=== PATIENT | female | born 1935 | race Caucasian/White ===

== ENCOUNTER 2016-06-01 08:54 | Observation (INO) ==
--- NOTE | 2016-06-01 08:56 | Emergency Department Note ---
Disposition Clinical Impression: Syncope, Laceration of scalp, New onset atrial fibrillation, Closed head injury Disposition: Admitted As Inpatient Condition: Good General Adult HPI - General Chief complaint: ED Syncope Stated complaint: Syncope Time Seen by Provider: 06/01/16 08:55 - Related Data Home Medications Medication Instructions Recorded Confirmed Aspirin Enteric Coated [Aspirin EC] 81 mg PO HS 11/18/14 06/01/16 Cyanocobalamin (Vitamin B-12) 1,000 mcg PO 11/18/14 06/01/16 [Vitamin B12] Isosorbide MONOnitrate (24 HR) 30 mg PO HS 11/18/14 06/01/16 [Imdur] Metoprolol XL (24 HR) Succ [Toprol 25 mg PO 11/18/14 06/01/16 XL] Nitroglycerin [Nitrostat] 0.4 mg SL Q5M PRN 11/18/14 06/01/16 Calcitriol [Rocaltrol] 0.25 mcg PO HS 11/21/15 06/01/16 Losartan/HCTZ [Hyzaar 50-12.5 1 each PO DAILY 11/21/15 06/01/16 Tablet] Arsen's Leg Cramps 1 each PO HS 06/01/16 06/01/16 Promethazine [Phenergan] 25 mg PO Q6H PRN 06/01/16 06/01/16 Allergies Allergy/AdvReac Type Severity Reaction Status Date / Time No Known Allergies Allergy Verified 11/21/15 10:59 Past Medical History - Past Medical History Medical history: Reports: coronary artery disease, hypertension, kidney stones, other Surgical history: Reports: herniorrhaphy, hysterectomy, other Psychiatric history: Reports: no psych history [employer] history: Reports: no [employer] history - Social History Smoking Status: Unknown if ever smoked Smokeless Tobacco Status: No Alcohol use: Reports: none Drug use: Reports: none Course Vital Signs Temperature 98.4 F 06/01/16 08:55 Pulse Rate 84 06/01/16 08:55 Respiratory Rate 16 06/01/16 08:55 Blood Pressure 144/71 06/01/16 08:55 O2 Sat by Pulse Oximetry 96 06/01/16 08:55 Temperature 98.3 F 06/02/16 04:59 Pulse Rate 59 06/02/16 04:59 Respiratory Rate 18 06/02/16 04:59 Blood Pressure 100/50 06/02/16 04:59 O2 Sat by Pulse Oximetry 95 06/02/16 04:59 Oxygen Delivery Oxygen Delivery Room Air Medical Decision Making - Lab Data Result diagrams: 06/02/16 06:24 06/01/16 09:16 Lab Results 06/01/16 06/01/16 06/01/16 Range/Units 09:07 09:16 09:16 WBC 6.0 (4.3-11.1) K/mcL RBC 4.39 (3.82-4.97) M/mcL Hgb 13.2 (11.5-15.4) g/dL Hct 40.2 (35.3-44.9) % MCV 91.6 (83.0-100.0) fL MCH 30.1 (28.0-33.3) pg MCHC 32.8 (31.6-35.5) g/dL RDW 12.4 (11.5-14.5) % Plt Count 187 (140-400) K/mcL MPV 10.6 (9.4-12.4) fL Immature Gran % 0.5 (0-4) % Seg Neutrophils % 61.9 % Lymphocytes % 25.9 % Monocytes % 7.5 % Eosinophils % 3.7 % Basophils % 0.5 % Neutrophils # 3.7 (1.6-8.9) K/mcL Lymphocytes # 1.6 (0.6-4.6) K/mcL Monocytes # 0.5 (0.0-1.3) K/mcL Eosinophils # 0.2 (0.0-0.6) K/mcL Basophils # 0.0 (0.0-0.2) K/mcL Immature Plt Fraction 5.0 (1.1-6.1) % PT 10.6 (9.4-12.1) Seconds INR 1.0 APTT 27.1 (26.0-36.0) Seconds Sodium (136-145) mEq/L Potassium (3.5-4.5) mEq/L Chloride (98-109) mEq/L Carbon Dioxide (19-29) mEq/L BUN (7-20) mg/dL Creatinine (0.57-1.11) mg/dL Est GFR ( Amer) (> 60) Est GFR (Non-Af Amer) (> 60) BUN/Creatinine Ratio (6-26) Glucose (70-99) mg/dL POC Glucose 124 H (58-89) Calculated Osmolality (280-300) Calcium (8.6-10.8) mg/dL Phosphorus (2.3-4.7) mg/dL Magnesium (1.6-2.6) mg/dL Troponin I (0-0.03) ng/mL TSH (0.350-4.840) mcIU/mL 06/01/16 06/01/16 Range/Units 09:16 09:16 WBC (4.3-11.1) K/mcL RBC (3.82-4.97) M/mcL Hgb (11.5-15.4) g/dL Hct (35.3-44.9) % MCV (83.0-100.0) fL MCH (28.0-33.3) pg MCHC (31.6-35.5) g/dL RDW (11.5-14.5) % Plt Count (140-400) K/mcL MPV (9.4-12.4) fL Immature Gran % (0-4) % Seg Neutrophils % % Lymphocytes % % Monocytes % % Eosinophils % % Basophils % % Neutrophils # (1.6-8.9) K/mcL Lymphocytes # (0.6-4.6) K/mcL Monocytes # (0.0-1.3) K/mcL Eosinophils # (0.0-0.6) K/mcL Basophils # (0.0-0.2) K/mcL Immature Plt Fraction (1.1-6.1) % PT (9.4-12.1) Seconds INR APTT (26.0-36.0) Seconds Sodium 142 (136-145) mEq/L Potassium 3.8 (3.5-4.5) mEq/L Chloride 111 H (98-109) mEq/L Carbon Dioxide 20 (19-29) mEq/L BUN 26 H (7-20) mg/dL Creatinine 1.16 H (0.57-1.11) mg/dL Est GFR ( Amer) 54 L (> 60) Est GFR (Non-Af Amer) 45 L (> 60) BUN/Creatinine Ratio 22 (6-26) Glucose 128 H (70-99) mg/dL POC Glucose (58-89) Calculated Osmolality 300 (280-300) Calcium 9.1 (8.6-10.8) mg/dL Phosphorus 3.0 (2.3-4.7) mg/dL Magnesium 1.5 L (1.6-2.6) mg/dL Troponin I 0.01 (0-0.03) ng/mL TSH 5.024 H (0.350-4.840) mcIU/mL Attestation Statement - Attestation Attestation: I examined this patient and my medical decision-making was reviewed with the COLLECTION CARD CLERK/PA/Advanced Practice Nurse/Resident Physician. I agree with the documented findings, disposition and treatment plan as described except to the extent set forth below. Face to face time provided Patient presents from home via EMS. She felt warm, lightheaded, dizzy and then fell and passed out. She has a laceration to her posterior occiput. She is lucid and conversational at the time of my exam. Patient seen and evaluated in conjunction with the resident physician Dr. Sterling
[2016-06-01] MEDS ORDERED: Ondansetron 4 MG/2 ML VIAL IV ONE (09:04)
--- NOTE | 2016-06-01 09:06 | Emergency Department Note ---
Disposition Clinical Impression: New onset atrial fibrillation Syncope Qualifiers: Syncope type: unspecified Qualified Code(s): R55 - Syncope and collapse Laceration of scalp Qualifiers: Encounter type: initial encounter Qualified Code(s): S01.01XA - Laceration without foreign body of scalp, initial encounter Closed head injury Qualifiers: Encounter type: initial encounter Qualified Code(s): S09.90XA - Unspecified injury of head, initial encounter Disposition: Admitted As Inpatient Condition: Good Time of Disposition: 10:16 Syncope HPI - General Chief Complaint: ED Syncope Stated Complaint: Syncope Time Seen by Provider: 06/01/16 08:55 Source: patient, EMS Mode of arrival: EMS Limitations: no limitations Nursing Notes Reviewed: Yes Vital Signs Reviewed: Yes - History of Present Illness HPI Narrative: 81-year-old female history of hypertension presents to ED via EMS for syncope. Patient got up this morning and made breakfast with eggs while standing she reports a warm feeling going up through her belly and she passed out. Denies any prodromal symptoms such as lightheadedness, headache, chest pain, shortness of breath. Denies any neck pain at this time. She lives at home with her daughter who found her. Denies any alcohol use today. She reports nausea at this time, no emesis. Denies any recent illness, fever, cough. She takes 81 mg aspirin. Denies any history of cardiac ischemic disease or heart failure. Denies any bloody stool, black tarry stool, hemoptysis. Her primary care physician is Dr. Lazaro. Dr. Flores is her membership counselor who she hasn't seen in several years. She is unsure of her last tetanus is and believes it has been close to 10 years if not more. Pt Subjective Complaint: loss of consciousness - Related Data Home Medications Medication Instructions Recorded Confirmed Aspirin Enteric Coated [Aspirin EC] 81 mg PO HS 11/18/14 06/01/16 Cyanocobalamin (Vitamin B-12) 1,000 mcg PO HS 11/18/14 06/01/16 [Vitamin B12] Isosorbide MONOnitrate (24 HR) 30 mg PO HS 11/18/14 06/01/16 [Imdur] Metoprolol XL (24 HR) Succ [Toprol 25 mg PO HS 11/18/14 06/01/16 XL] Nitroglycerin [Nitrostat] 0.4 mg SL Q5M PRN 11/18/14 06/01/16 Calcitriol [Rocaltrol] 0.25 mcg PO HS 11/21/15 06/01/16 Losartan/HCTZ [Hyzaar 50-12.5 1 each PO DAILY 11/21/15 06/01/16 Tablet] Arsen's Leg Cramps 1 each PO HS 06/01/16 06/01/16 Promethazine [Phenergan] 25 mg PO Q6H PRN 06/01/16 06/01/16 Allergies Allergy/AdvReac Type Severity Reaction Status Date / Time No Known Allergies Allergy Verified 11/21/15 10:59 All systems ED: reviewed and negative except as stated. Constitutional: Denies: fever, chills Eyes: Denies: vision change Cardiovascular: Denies: chest pain, palpitations, dyspnea on exertion Respiratory: Denies: cough, dyspnea, wheezes Gastrointestinal: Reports: nausea. Denies: abdominal pain, vomiting, melena, hematochezia Genitourinary: Denies: urgency, dysuria Musculoskeletal: Denies: back pain, neck pain Integumentary: Denies: rash, abrasion Neurological: Denies: headache, confusion Hematological/Lymphatic: Denies: easy bleeding Past Medical History - Past Medical History Attestation: Yes The following information was validated with the patient. Medical history: Reports: coronary artery disease, hypertension, kidney stones, other Surgical history: Reports: herniorrhaphy, hysterectomy, other Psychiatric history: Reports: no psych history VASCULAR SURGERY PHYSICIAN history: Reports: no VASCULAR SURGERY PHYSICIAN history - Social History Smoking Status: Unknown if ever smoked Smokeless Tobacco Status: No Alcohol use: Reports: none Drug use: Reports: none Physical Exam - General Limitations: no limitations General appearance: alert, in no apparent distress - Expanded Head Exam Head exam physicial: Present: laceration (stellate right parietal/occipital, 4 cm ). Absent: contusion, raccoon eyes, Persaud's sign, CSF rhinorrhea - Eye Eye exam: Present: normal appearance, PERRL, EOMI - ENT ENT exam: normal exam, normal oropharynx, mucous membranes moist, TM's normal bilaterally - Expanded ENT Exam TM/Canal: Hemotympanum: Negative Nose exam: negative: rhinorrhea, sinus tenderness Mouth exam: Present: normal external inspection, tongue normal Teeth exam: Present: normal inspection Throat exam: Present: normal inspection - Neck Neck exam: Present: normal inspection, full ROM, trachea midline. Absent: tenderness - Expanded Neck Exam Neck exam focused ED: Absent: midline tenderness, paraspinal tenderness, anterior neck swelling - Chest Chest inspection: Present: normal inspection, symmetric chest wall rise - Respiratory Respiratory exam: Present: normal lung sounds bilaterally. Absent: respiratory distress, wheezes - Cardiovascular Cardiovascular exam: Present: regular rate, normal rhythm, normal heart sounds. Absent: systolic murmur, diastolic murmur - Abdominal Exam Abdominal exam: Present: soft, Non-Tender, normal bowel sounds. Absent: tenderness, distention, guarding, rebound, rigidity - Extremities Exam Extremities exam: Present: normal inspection, full ROM, normal capillary refill. Absent: tenderness, pedal edema, calf tenderness - Back Exam Back exam: Present: normal inspection, full ROM. Absent: tenderness - Neurological Exam Neurological exam: Present: alert, oriented X3, CN II-XII intact - Expanded Neurological Exam Patient oriented to: Present: person, place, time Speech: Present: fluid speech Cranial nerves: EOM function (II, III, IV, ): Normal, facial sensation (V): Normal, facial palsy (VII): Normal, gag reflex (IX): Normal, spinal accessory function (XI): Normal, tongue deviation (XII): Normal Motor strength - LUE: 5/5 Motor strength - RUE: 5/5 Motor strength - LLE: 5/5 Motor strength - RLE: 5/5 Upper motor neuron exam: andrew neglect: Absent bilaterally Sensory exam upper extremity: light touch: Normal Sensory exam lower extremity: light touch: Normal - Psychiatric Psychiatric exam: Present: normal affect, normal mood - Skin Skin exam: Present: warm, dry, intact, normal color - Expanded Skin Exam Type of lesion: Present: laceration Distribution: head Description: Present: size 1 - 2 cm 2 - 2 cm Course Course Narrative: 81-year-old female presents for syncopal episode. She has a head laceration to the right parietal region. Leading his control at this time. Denies any prodromal symptoms prior to syncope. No history of heart failure. Vital signs are stable. She appears in no acute distress. Neurologic exam is normal without any focal neural deficits. No cervical midline tenderness. Flexion of the cervical spine reproduces nausea and lightheadedness. She vomited once and eugene down to 30-40s. This is likely the cause of her syncope. Heart is regular rate and rhythm. Lungs are clear auscultation bilaterally. Abdomen is soft nontender and nondistended. Will update her tetanus. EKG, basic labs, CT of the head. No cervical neck tenderness. She is cleared by Nexus criteria. EKG performed reveals atrial fibrillation 73 bpm. Patient is unaware of any history of irregular heart rhythm such as atrial fibrillation and this appears to be new onset. Alpine syncope rule, she has an abnormal aberrant EKG. Will be admitted for syncope and new onset atrial fibrillation. - Reevaluation(s) Reevaluation #1: EKG reveals new onset atrial fibrillation 73 bpm she is not anemic. TSH is elevated 5. She has renal insufficiency that appears better than baseline 1.1. Troponins negative. Magnesium is low at 1.5. Low replete with 2 g magnesium. Chest x-ray appears unremarkable. CT of the head does not reveal any intracranial abnormality. Patient admitted for syncope, closed head injury , new onset atrial fibrillation. Scalp laceration repaired with megan. Tetanus was updated. Time: 10:24 Reevaluation #2: Repeat EKG reveals sinus rhythm with first-degree AV block OK interval 353. No ST elevation or depressions. No T-wave versions. Q waves are consistent in the inferior leads. Time: 10:39 - Consultations Consultation #1: Spoke with on-call hospitalist rachell Betancur to admit for syncope, closed head injury, new onset atrial fibrillation. No further orders at this time Time: 10:39 Vital Signs Temperature 98.4 F 06/01/16 08:55 Pulse Rate 84 06/01/16 08:55 Respiratory Rate 16 06/01/16 08:55 Blood Pressure 144/71 06/01/16 08:55 O2 Sat by Pulse Oximetry 96 06/01/16 08:55 Temperature 98.4 F 06/01/16 08:55 Pulse Rate 73 06/01/16 10:21 Respiratory Rate 16 06/01/16 10:21 Blood Pressure 123/49 06/01/16 10:21 O2 Sat by Pulse Oximetry 95 06/01/16 10:21 Oxygen Delivery Oxygen Delivery Room Air Procedures - Laceration Laceration 1 Site: scalp Side (If applicable): right Size (cm): 7 (3cm x 2 cm x 2cm) Description: stellate Local Anesthetic: lidocaine 1%, with epi Amount of Anesthesia Used (mL): 5 Pre-repair: wound explored, irrigated extensively, deep structures intact Skin layer closed with: megan Number of sutures/megan: 9 (megan) Technique: simple, interrupted Syncope - Medical Records Medical records reviewed: Yes I reviewed the patient's medical records. - Lab Data Lab results reviewed: Yes I reviewed the patient's lab results. Result diagrams: 06/01/16 09:16 06/01/16 09:16 Lab Results 06/01/16 06/01/16 06/01/16 Range/Units 09:07 09:16 09:16 WBC 6.0 (4.3-11.1) K/mcL RBC 4.39 (3.82-4.97) M/mcL Hgb 13.2 (11.5-15.4) g/dL Hct 40.2 (35.3-44.9) % MCV 91.6 (83.0-100.0) fL MCH 30.1 (28.0-33.3) pg MCHC 32.8 (31.6-35.5) g/dL RDW 12.4 (11.5-14.5) % Plt Count 187 (140-400) K/mcL MPV 10.6 (9.4-12.4) fL Immature Gran % 0.5 (0-4) % Seg Neutrophils % 61.9 % Lymphocytes % 25.9 % Monocytes % 7.5 % Eosinophils % 3.7 % Basophils % 0.5 % Neutrophils # 3.7 (1.6-8.9) K/mcL Lymphocytes # 1.6 (0.6-4.6) K/mcL Monocytes # 0.5 (0.0-1.3) K/mcL Eosinophils # 0.2 (0.0-0.6) K/mcL Basophils # 0.0 (0.0-0.2) K/mcL Immature Plt Fraction 5.0 (1.1-6.1) % PT 10.6 (9.4-12.1) Seconds INR 1.0 APTT 27.1 (26.0-36.0) Seconds Sodium (136-145) mEq/L Potassium (3.5-4.5) mEq/L Chloride (98-109) mEq/L Carbon Dioxide (19-29) mEq/L BUN (7-20) mg/dL Creatinine (0.57-1.11) mg/dL Est GFR ( Amer) (> 60) Est GFR (Non-Af Amer) (> 60) BUN/Creatinine Ratio (6-26) Glucose (70-99) mg/dL POC Glucose 124 H (58-89) Calculated Osmolality (280-300) Calcium (8.6-10.8) mg/dL Phosphorus (2.3-4.7) mg/dL Magnesium (1.6-2.6) mg/dL Troponin I (0-0.03) ng/mL TSH (0.350-4.840) mcIU/mL 06/01/16 06/01/16 Range/Units 09:16 09:16 WBC (4.3-11.1) K/mcL RBC (3.82-4.97) M/mcL Hgb (11.5-15.4) g/dL Hct (35.3-44.9) % MCV (83.0-100.0) fL MCH (28.0-33.3) pg MCHC (31.6-35.5) g/dL RDW (11.5-14.5) % Plt Count (140-400) K/mcL MPV (9.4-12.4) fL Immature Gran % (0-4) % Seg Neutrophils % % Lymphocytes % % Monocytes % % Eosinophils % % Basophils % % Neutrophils # (1.6-8.9) K/mcL Lymphocytes # (0.6-4.6) K/mcL Monocytes # (0.0-1.3) K/mcL Eosinophils # (0.0-0.6) K/mcL Basophils # (0.0-0.2) K/mcL Immature Plt Fraction (1.1-6.1) % PT (9.4-12.1) Seconds INR APTT (26.0-36.0) Seconds Sodium 142 (136-145) mEq/L Potassium 3.8 (3.5-4.5) mEq/L Chloride 111 H (98-109) mEq/L Carbon Dioxide 20 (19-29) mEq/L BUN 26 H (7-20) mg/dL Creatinine 1.16 H (0.57-1.11) mg/dL Est GFR ( Amer) 54 L (> 60) Est GFR (Non-Af Amer) 45 L (> 60) BUN/Creatinine Ratio 22 (6-26) Glucose 128 H (70-99) mg/dL POC Glucose (58-89) Calculated Osmolality 300 (280-300) Calcium 9.1 (8.6-10.8) mg/dL Phosphorus 3.0 (2.3-4.7) mg/dL Magnesium 1.5 L (1.6-2.6) mg/dL Troponin I 0.01 (0-0.03) ng/mL TSH 5.024 H (0.350-4.840) mcIU/mL - Radiology Data Radiology results reviewed: Yes I reviewed the patient's radiology results. Chest X-Ray 06/01/16 09:01 IMPRESSION: No acute cardiopulmonary process. D/ / 06/01/2016 09:38:01 Kathy Walsh MD / angelica Interpreting Provider: Kathy Walsh MD Head CT 06/01/16 09:02 IMPRESSION: Mild cerebral atrophy. Mild chronic small vessel ischemic changes. 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 No acute brain parenchymal abnormality. D/ / Kathy Walsh MD / Kathy Wlash MD Interpreting Provider: Kathy Walsh MD - EKG Data EKG attestation: Yes I reviewed and interpreted this EKG. EKG results narrative: EKG performed 903 new onset atrial fibrillation 73 bpm, good R-R wave progression, no ST elevation or depression, old Q waves in inferior lead. Compared to old EKG performed 11/21/2015 shows sinus rhythm with first-degree AV block 62 bpm with possible inferior CA with old Q waves consistent with today's EKG. Will check a repeat EKG. No acute ischemic changes.
[2016-06-01] MEDS ORDERED: Tdap (Boostrix) Vaccine 0.5 ML SYRINGE IM ONE (09:11)
[2016-06-01] MEDS ORDERED: Lidocaine/EPI 1:100k 1% 20 ML VIAL INFILT ONE (09:12)
[2016-06-01 09:23] LABS: Basophils % 0.5 %; Eosinophils # 0.2 K/mcL (0.0-0.6); Eosinophils % 3.7 %; Hematocrit 40.2 % (35.3-44.9); Hemoglobin 13.2 g/dL (11.5-15.4); Immature Granulocytes % 0.5 % (0-4); Lymphocytes # 1.6 K/mcL (0.6-4.6); Lymphocytes % 25.9 %; Mean Corpuscular HGB Conc 32.8 g/dL (31.6-35.5); Mean Corpuscular Hemoglobin 30.1 pg (28.0-33.3); Mean Corpuscular Volume 91.6 fL (83.0-100.0); Mean Platelet Volume 10.6 fL (9.4-12.4); Monocytes # 0.5 K/mcL (0.0-1.3); Monocytes % 7.5 %; Neutrophils # 3.7 K/mcL (1.6-8.9); Platelet Count 187 K/mcL (140-400); Red Blood Count 4.39 M/mcL (3.82-4.97); Red Cell Distribution Width 12.4 % (11.5-14.5); Segmented Neutrophils % 61.9 %
[2016-06-01 09:28] LABS: Prothrombin Time 10.6 Seconds (9.4-12.1)
[2016-06-01 09:30] LABS: Activated Partial Thrombo Time 27.1 Seconds (26.0-36.0)
[2016-06-01 09:34] LABS: Calcium 9.1 mg/dL (8.6-10.8); Potassium 3.8 mEq/L (3.5-4.5)
[2016-06-01 09:50] LABS: Magnesium 1.5 mg/dL (1.6-2.6)
[2016-06-01 10:12] LABS: Thyroid Stimulating Hormone 5.024 mcIU/mL (0.350-4.840)
[2016-06-01] MEDS ORDERED: Naloxone 0.4 MG/ML INJ IVP PRN (11:25)
[2016-06-01] MEDS ORDERED: Nitroglycerin 0.4 MG TAB.SUBL SL PRN (11:28)
--- NOTE | 2016-06-01 11:41 | Internal Med History&Physical ---
<Corazon Velasquez M - Last Filed: 06/01/16 11:36> Date of Encounter: 06/01/16 Time of Encounter: 11:36 Assessment and Plan (1) Syncope Current visit: Yes Status: Acute Patient reports this morning she was standing at her stove when a warm feeling came over her, she was dizzy and lightheaded and the next thing she knew she was on the floor. She denies any other recent episodes of dizziness, lightheadedness or fainting. On exam, she becomes lightheaded and nauseous when her position is changed from lying at 45 degree angle to sitting straight up. CT of the Head was negative for acute abnormality. EKG showed Afib, but repeat EKG showed sinus rhythm. Troponin was negative at 0.01. Continuous court monitor serial troponins echocardiogram orthostatic vital signs carotid dopplers Qualifiers: Syncope type: unspecified Qualified Code(s): R55 - Syncope and collapse (2) New onset atrial fibrillation Current visit: Yes Status: Acute Initial EKG showed afib with HR 73. Patient denies any history of afib or arrhythmia. Repeat EKG showed sinus rhythm with first degree AV block. Patient already on metoprolol. Continuous court monitor. Consider anticoagulation options once workup complete. (3) Coronary artery disease Current visit: Yes Status: Acute Cardiac cath 2010 showed EF 60%; L main normal, 40-50% mid LAD, 50% RCA. Continue home doses of metoprolol, imdur, aspirin, Qualifiers: Coronary Disease-Associated Artery/Lesion type: [place] artery [place] vs. transplanted heart: [place] heart Associated angina: without angina Qualified Code(s): I25.10 - Atherosclerotic heart disease of [place] coronary artery without angina pectoris (4) Hypothyroid Current visit: Yes Status: Acute Patient reports she used to take synthroid, but has not for a while because it was no longer needed. TSH elevated at 5.024. Will check T4 and consider initiating levothyroxine again at a low dose. Qualifiers: Hypothyroidism type: unspecified Qualified Code(s): E03.9 - Hypothyroidism , unspecified (5) Laceration of scalp Current visit: Yes Status: Acute Patient hit the back of her head when she fainted and had a laceration. Laceration was cleaned and megan applied by ED. Dressing clean and dry on exam. Qualifiers: Encounter type: initial encounter Qualified Code(s): S01.01XA - Laceration without foreign body of scalp, initial encounter (6) DVT prophylaxis Current visit: Yes Status: Acute Up to chair BID anti-embolic stockings Lovenox 40mg SQ daily Internal Medicine - H&P: HPI Chief complaint: syncope Admitted From: Emergency Dept Plans for Post Hospital Care: Home History of present illness: Ms. Coates is a 81 year old female with hypertension, coronary artery disease, chronic kidney disease, GERD who presented to the emergency department this morning after an episode of syncope. Patient reports she was at the stove cooking eggs when she felt "warm feeling overcome her accompanied by lightheadedness and dizziness in the next thing she knew, she was on the floor. She had fainted and hit her head. She denies any palpitations, shortness of breath, headache prior to event, recent fever, chills, sweats, nausea or vomiting, diarrhea. She denies any weakness, numbness or tingling. Patient reports that when she sits up she does feel dizzy and nauseous. She hit the back of her head during her fall and reports that it was hurting until the ER numbed it for her megan. Evaluation in the emergency department included a CT of her head which showed no acute intracranial abnormality. Chest x-ray showed no acute cardiopulmonary disease. Her initial EKG showed A. fib with heart rate of 73 repeat EKG EKG showed sinus rhythm with first-degree AV block. Troponin was negative at 0.01. TSH was elevated. Magnesium was low at 1.5. Creatinine of 1.16 was consistent with her baseline chronic kidney disease. On exam, patient is alert and oriented, in no acute distress. Lungs are clear bilaterally to auscultation, heart has regular rate and rhythm. Patient becomes visibly uncomfortable and reports nausea and dizziness when she sits up. Past Med Surg Social Fam HX - Past Medical History Medical history: coronary artery disease, GERD, hypertension, kidney stones, renal disease, other Psychiatric history: no psych history - Past Surgical History Surgical History: herniorrhaphy, hysterectomy, other - Social History Smoking Status: Never smoker Smokeless Tobacco Status: No Alcohol use: none Drug use: none - Family History Mother Living Status: Age at : 96 Father Living Status: Age at : 79 Cause of : lung cancer Internal Medicine - H&P: Meds Aspirin Enteric Coated [Aspirin EC] 81 mg PO HS 11/18/14 [History] Cyanocobalamin (Vitamin B-12) [Vitamin B12] 1,000 mcg PO HS 11/18/14 [History] Isosorbide MONOnitrate (24 HR) [Imdur] 30 mg PO HS 11/18/14 [History] Metoprolol XL (24 HR) Succ [Toprol XL] 25 mg PO HS 11/18/14 [History] Nitroglycerin [Nitrostat] 0.4 mg SL Q5M PRN 11/18/14 [History] Calcitriol [Rocaltrol] 0.25 mcg PO HS 11/21/15 [History] Losartan/HCTZ [Hyzaar 50-12.5 Tablet] 1 each PO DAILY 11/21/15 [History] Arsen's Leg Cramps 1 each PO HS 06/01/16 [History] Promethazine [Phenergan] 25 mg PO Q6H PRN 06/01/16 [History] Allergies No Known Allergies Allergy (Verified 11/21/15 10:59) All Systems PM: A 10-system review of systems was performed and is negative for pertinent findings except as documented above in the HPI. - Constitutional Constitutional: no chills, no fever(s), no night sweats - EENT Eyes: no change in vision, no discharge, no pain, no photophobia Ears: no ear discharge, no ear pain, no tinnitus Nose, mouth and throat: no dysphagia, no nasal discharge, no neck pain, no sore throat - Cardiovascular Cardiovascular ROS IM: lightheadedness, syncope, no chest pain, no diaphoresis, no dyspnea, no palpitations - Respiratory Respiratory: no cough, no dyspnea, no wheezing, no excessive phlegm production - Gastrointestinal Gastrointestinal: nausea (with sitting up.), no abdominal pain, no diarrhea, no hematemesis, no hematochezia, no melena, no vomiting - Genitourinary Genitourinary: no change in urinary stream, no dysuria, no flank pain, no hematuria - Musculoskeletal Musculoskeletal ROS IM: no numbness, no tingling - Integumentary Integumentary IM: no rash, no unusual bruising - Neurological Neurological ROS: dizziness, no confusion, no convulsions, no focal weakness, no numbness, no tingling, no tremor(s) - Hematologic/Lymphatic Hematologic/Lymphatic: no easy bruising - Constitutional Vitals: Temp Pulse Resp BP Pulse Ox 98.4 F 74 16 114/59 96 06/01/16 08:55 06/01/16 11:03 06/01/16 11:11 06/01/16 11:11 06/01/16 11:03 General appearance: Present: A&O X 3, pleasant, no acute distress - Head Head exam: Present: normocephalic Additional comments: Patient's head wrapped in gauze after ED physician stapled the laceration on the occiput. - Eye Eye exam: Present: PERRL, conjuntiva pink, sclera anicteric Pupils: Present: PERRL - Neck Neck exam general surgery: Present: supple, trachea midline. Absent: lymphadenopathy - Respiratory Respiratory exam: Present: CTAB. Absent: accessory muscle use, rales, rhonchi, wheezes - Cardiovascular Cardiovascular exam: Present: RRR, +S1, +S2. Absent: diastolic murmur, gallop, rubs, systolic murmur - GI/Abdominal GI/Abdominal exam: Present: normal bowel sounds, soft, no peritoneal signs. Absent: distended, tenderness - Extremities Exam Extremities exam: Present: warm, radial pulses palpable and symetrical. Absent : calf tenderness, cyanotic, pedal edema - Neurological Exam Neurological exam: Present: CN II-XII intact, oriented X3, no focal deficits. Absent: facial droop, speech deficit - Skin Skin exam: Present: dry, intact Internal Med - H&P Results - Labs CBC & Chem 7: 06/01/16 09:16 06/01/16 09:16 Labs: All Lab Results (24 Hours) 06/01/16 06/01/16 06/01/16 Range/Units 09:07 09:16 09:16 WBC 6.0 (4.3-11.1) K/mcL RBC 4.39 (3.82-4.97) M/mcL Hgb 13.2 (11.5-15.4) g/dL Hct 40.2 (35.3-44.9) % MCV 91.6 (83.0-100.0) fL MCH 30.1 (28.0-33.3) pg MCHC 32.8 (31.6-35.5) g/dL RDW 12.4 (11.5-14.5) % Plt Count 187 (140-400) K/mcL MPV 10.6 (9.4-12.4) fL Immature Gran % 0.5 (0-4) % Seg Neutrophils % 61.9 % Lymphocytes % 25.9 % Monocytes % 7.5 % Eosinophils % 3.7 % Basophils % 0.5 % Neutrophils # 3.7 (1.6-8.9) K/mcL Lymphocytes # 1.6 (0.6-4.6) K/mcL Monocytes # 0.5 (0.0-1.3) K/mcL Eosinophils # 0.2 (0.0-0.6) K/mcL Basophils # 0.0 (0.0-0.2) K/mcL Immature Plt Fraction 5.0 (1.1-6.1) % PT 10.6 (9.4-12.1) Seconds INR 1.0 APTT 27.1 (26.0-36.0) Seconds Sodium (136-145) mEq/L Potassium (3.5-4.5) mEq/L Chloride (98-109) mEq/L Carbon Dioxide (19-29) mEq/L BUN (7-20) mg/dL Creatinine (0.57-1.11) mg/dL Est GFR ( Amer) (> 60) Est GFR (Non-Af Amer) (> 60) BUN/Creatinine Ratio (6-26) Glucose (70-99) mg/dL POC Glucose 124 H (58-89) Calculated Osmolality (280-300) Calcium (8.6-10.8) mg/dL Phosphorus (2.3-4.7) mg/dL Magnesium (1.6-2.6) mg/dL Troponin I (0-0.03) ng/mL TSH (0.350-4.840) mcIU/mL 06/01/16 06/01/16 Range/Units 09:16 09:16 WBC (4.3-11.1) K/mcL RBC (3.82-4.97) M/mcL Hgb (11.5-15.4) g/dL Hct (35.3-44.9) % MCV (83.0-100.0) fL MCH (28.0-33.3) pg MCHC (31.6-35.5) g/dL RDW (11.5-14.5) % Plt Count (140-400) K/mcL MPV (9.4-12.4) fL Immature Gran % (0-4) % Seg Neutrophils % % Lymphocytes % % Monocytes % % Eosinophils % % Basophils % % Neutrophils # (1.6-8.9) K/mcL Lymphocytes # (0.6-4.6) K/mcL Monocytes # (0.0-1.3) K/mcL Eosinophils # (0.0-0.6) K/mcL Basophils # (0.0-0.2) K/mcL Immature Plt Fraction (1.1-6.1) % PT (9.4-12.1) Seconds INR APTT (26.0-36.0) Seconds Sodium 142 (136-145) mEq/L Potassium 3.8 (3.5-4.5) mEq/L Chloride 111 H (98-109) mEq/L Carbon Dioxide 20 (19-29) mEq/L BUN 26 H (7-20) mg/dL Creatinine 1.16 H (0.57-1.11) mg/dL Est GFR ( Amer) 54 L (> 60) Est GFR (Non-Af Amer) 45 L (> 60) BUN/Creatinine Ratio 22 (6-26) Glucose 128 H (70-99) mg/dL POC Glucose (58-89) Calculated Osmolality 300 (280-300) Calcium 9.1 (8.6-10.8) mg/dL Phosphorus 3.0 (2.3-4.7) mg/dL Magnesium 1.5 L (1.6-2.6) mg/dL Troponin I 0.01 (0-0.03) ng/mL TSH 5.024 H (0.350-4.840) mcIU/mL - Diagnostic Studies Chest x-ray Additional comments: Chest X-Ray 06/01/16 09:01 IMPRESSION: No acute cardiopulmonary process. D/ / 06/01/2016 09:38:01 Kathy Walsh MD / angelica Interpreting Provider: Kathy Walsh MD CT scan - head Additional comments: Head CT 06/01/16 09:02 IMPRESSION: Mild cerebral atrophy. Mild chronic small vessel ischemic changes. 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 No acute brain parenchymal abnormality. D/ / 06/01/2016 10:26:47 Kathy Walsh MD / angelica Interpreting Provider: Kathy Walsh MD <Emanuel Alexander T - Last Filed: 06/01/16 12:29> Date of Encounter: 06/01/16 Internal Medicine - H&P: HPI History of present illness: Ms. Coates is a 81 year old female All Systems PM: A 10-system review of systems was performed and is negative for pertinent findings except as documented above in the HPI. - Constitutional Vitals: Temp Pulse Resp BP Pulse Ox 97.9 F 85 18 115/65 97 06/01/16 11:25 06/01/16 11:25 06/01/16 11:25 06/01/16 11:25 06/01/16 11:25 Internal Med - H&P Results - Labs CBC & Chem 7: 06/01/16 09:16 06/01/16 09:16 - Attending Attestation I have independently interviewed and examined this patient. I have reviewed the EMR extensively and discussed plan of care the resident/nurse practitioner. 81 Y/O F with PMH of GERD, Nephrolithiasis s/p ureter stent, HTN, CKD, CAD, HTN She presented with syncope preceded by warmth, dizziness and lightheadedness, she had been standing and cooking prior to onset. At time of review, she reported feeling sick/nauseous whenever she sat upright, unable to check orthostatics at that time. She sustained a closed head injury with posterior scalp laceration that has been sutured by ER. She denies preceding chest pain or SOB, no urinary symptoms Physical exam VSS, no neurologic deficits, HS S1, S2, irregular, chest is clear to auscultation bilaterally, abdomen is not tender, no pedal edema. Work un in ED revealed CBC and Chem at baseline, TSH slightly elevated at 5.3, Magnesium low 1.5, Initial EKG showed Afib, repeat EKG was sinus with 1st degree AV block, trop negative. Assessment/Plan: Syncope, r/o cardiac cause, Head CT no acute processes, obtain ECHO, Carotid Doppler, orthostats, fall precautions, Afib, unknown to patient, but one EKG in 2015 reported as Afib, rate is controlled, CHADS score is 2 for age and HTN, discussed anticoagulation with patient, continue ASA for now, cycle troponins and continue to monitor on telemetry, replace Mag and follow chem, agree with checking Free T4, chronic medical conditions are stable Rest of details as in [employer] documentation.
[2016-06-01] MEDS: *HR* HYDROcodone/Acet 5/325 mg TABLET PO PRN (16:24)
[2016-06-01] MEDS: Acetaminophen 325 MG TABLET PO PRN (21:42)
[2016-06-01] MEDS: Aspirin Enteric Coated 81 MG Tablet PO SCH (21:42)
[2016-06-01] MEDS: Isosorbide MONOnitrate (24 HR) 30 MG TAB.ER.24H PO SCH (21:43)
[2016-06-01] MEDS: Metoprolol XL (24 HR) Succ 25 MG TAB.ER.24H PO SCH (21:43)
[2016-06-01] MEDS: Cyanocobalamin (B-12) 1,000 MCG TABLET PO SCH (21:43)
[2016-06-01] MEDS ORDERED: Ondansetron 4 MG/2 ML VIAL IVP PRN (23:41)
[2016-06-02] MEDS: *HR* Enoxaparin 40 MG/0.4 ML SYRINGE SQ SCH (06:15)
[2016-06-02 06:48] LABS: Basophils % 0.3 %; Eosinophils # 0.1 K/mcL (0.0-0.6); Eosinophils % 2.4 %; Hematocrit 35.2 % (35.3-44.9); Hemoglobin 11.7 g/dL (11.5-15.4); Immature Granulocytes % 0.8 % (0-4); Immature Platelets 5.1 % (1.1-6.1); Lymphocytes # 1.1 K/mcL (0.6-4.6); Lymphocytes % 18.8 %; Mean Corpuscular HGB Conc 33.2 g/dL (31.6-35.5); Mean Corpuscular Volume 93.1 fL (83.0-100.0); Mean Platelet Volume 11.4 fL (9.4-12.4); Monocytes # 0.6 K/mcL (0.0-1.3); Monocytes % 9.8 %; Platelet Count 178 K/mcL (140-400); Red Blood Count 3.78 M/mcL (3.82-4.97); Red Cell Distribution Width 12.6 % (11.5-14.5); Segmented Neutrophils % 67.9 %
[2016-06-02 07:03] LABS: Calcium 8.8 mg/dL (8.6-10.8); Magnesium 2.1 mg/dL (1.6-2.6); Potassium 4.1 mEq/L (3.5-4.5)
[2016-06-02] MEDS: Losartan/HCTZ 50-12.5 TABLET PO SCH (09:02)
--- NOTE | 2016-06-02 09:07 | Internal Med Progress Note ---
Date of Encounter: 06/03/16 Time of Encounter: 09:04 - Assessment and plan (1) Syncope Current Visit: Yes Status: Acute Assessment and plan: Unwitnessed possible syncope: Persistent dizziness in spite of appropriate hydration. Blood pressure and other vital signs within acceptable range. CT scan of the brain/x-ray chest: Within normal limits as age-appropriate. Plan: -Awaiting results for echocardiogram/ultrasound carotid. -We will continue present management. -Close monitoring. -Fall precaution Qualifiers: Syncope type: unspecified Qualified Code(s): R55 - Syncope and collapse (2) New onset atrial fibrillation Current Visit: Yes Status: Acute Assessment and plan: EKG from yesterday suggestive of her atrial fibrillation. Previous EKG reviewed and they were in sinus rhythm. [id number] 4 HAS-BLED 4 Discuss with family at length regarding anticoagulation. (3) Closed head injury Current Visit: Yes Status: Acute Assessment and plan: We will continue to monitor closely. No obvious bleeding noted. Close monitoring. Fall precautions. Qualifiers: Encounter type: subsequent encounter Qualified Code(s): S09.90XD - Unspecified injury of head, subsequent encounter (4) Coronary artery disease Current Visit: Yes Status: Acute Assessment and plan: Stable coronary artery disease. No chest pain. Qualifiers: Coronary Disease-Associated Artery/Lesion type: [place] artery [place] vs. transplanted heart: [place] heart Associated angina: without angina Qualified Code(s): I25.10 - Atherosclerotic heart disease of [place] coronary artery without angina pectoris (5) Hypothyroid Current Visit: Yes Status: Acute Assessment and plan: Replacement medication Qualifiers: Hypothyroidism type: unspecified Qualified Code(s): E03.9 - Hypothyroidism , unspecified (6) DVT prophylaxis Current Visit: Yes Status: Acute Assessment and plan: Lovenox Medical decision making: This patient has a moderate to severe risk of worsening in spite of being on appropriate medication - Subjective Interval history: Seen and examined. Chart reviewed. Patient is comfortably lying in bed. She still complains he complains of occasional dizziness. patient denies chest pain, nausea, shortness of breath, abdominal pain or diarrhea - Constitutional Vitals: Temp Pulse Resp BP Pulse Ox 98.3 F 59 18 100/50 96 06/02/16 04:59 06/02/16 04:59 06/02/16 04:59 06/02/16 04:59 06/02/16 07:52 General appearance: Present: A&O X 3, pleasant, no acute distress - Head Head exam: Present: atraumatic, normocephalic - Eye Eye exam: Present: PERRL, conjuntiva pink, sclera anicteric Pupils: Present: PERRL - Neck Neck exam general surgery: Present: supple, trachea midline. Absent: lymphadenopathy - Respiratory Respiratory exam: Present: CTAB. Absent: accessory muscle use, rales, rhonchi, wheezes - Cardiovascular Cardiovascular exam: Present: RRR, +S1, +S2. Absent: diastolic murmur, gallop, rubs, systolic murmur - GI/Abdominal GI/Abdominal exam: Present: normal bowel sounds, soft, no peritoneal signs. Absent: distended, tenderness - Extremities Exam Extremities exam: Present: warm, radial pulses palpable and symetrical. Absent : calf tenderness, cyanotic, pedal edema - Neurological Exam Neurological exam: Present: CN II-XII intact, oriented X3, no focal deficits. Absent: pronater drift, facial droop, speech deficit - Skin Skin exam: Present: dry, intact Internal Medicine: Result - Labs CBC & Chem 7: 06/03/16 04:27 06/03/16 04:27 Labs: Short CBC 06/02/16 Range/Units 06:24 WBC 5.9 (4.3-11.1) K/mcL Hgb 11.7 D (11.5-15.4) g/dL Hct 35.2 L (35.3-44.9) % Plt Count 178 (140-400) K/mcL Neutrophils # 4.0 (1.6-8.9) K/mcL BMP 06/02/16 06:24 Sodium 141 Potassium 4.1 Chloride 110 H Carbon Dioxide 22 BUN 28 H Creatinine 1.20 H Glucose 94 Calcium 8.8 Cardiac Enzymes 06/01/16 06/01/16 Range/Units 16:13 21:47 Troponin I 0.01 0.02 (0-0.03) ng/mL - ABG Interpretation ABG results: PT/INR, D-dimer PT 10.6 Seconds (9.4-12.1) 06/01/16 09:16 Consult Discharge Plan - Plan Referrals: Balaji Vega DO [Partnered Physician] - Chloé Lazaro MD [Primary Care Provider] -
[2016-06-02] MEDS: Metoprolol XL (24 HR) Succ 25 MG TAB.ER.24H PO SCH (21:12)
[2016-06-02] MEDS: Cyanocobalamin (B-12) 1,000 MCG TABLET PO SCH (21:12)
[2016-06-02] MEDS: Aspirin Enteric Coated 81 MG Tablet PO SCH (21:12)
[2016-06-02] MEDS: Isosorbide MONOnitrate (24 HR) 30 MG TAB.ER.24H PO SCH (21:12)
[2016-06-02] MEDS: *HR* HYDROcodone/Acet 5/325 mg TABLET PO PRN (21:19)
[2016-06-03 04:52] LABS: Basophils % 0.6 %; Eosinophils # 0.3 K/mcL (0.0-0.6); Eosinophils % 5.1 %; Hematocrit 35.7 % (35.3-44.9); Hemoglobin 11.7 g/dL (11.5-15.4); Lymphocytes # 1.9 K/mcL (0.6-4.6); Lymphocytes % 35.5 %; Mean Corpuscular HGB Conc 32.8 g/dL (31.6-35.5); Mean Corpuscular Hemoglobin 30.2 pg (28.0-33.3); Mean Corpuscular Volume 92.2 fL (83.0-100.0); Monocytes # 0.6 K/mcL (0.0-1.3); Monocytes % 10.9 %; Neutrophils # 2.6 K/mcL (1.6-8.9); Platelet Count 167 K/mcL (140-400); Red Blood Count 3.87 M/mcL (3.82-4.97); Red Cell Distribution Width 12.3 % (11.5-14.5); Segmented Neutrophils % 47.9 %
[2016-06-03 05:14] LABS: Albumin 2.8 g/dL (3.5-5.0); Bilirubin,Total 0.9 mg/dL (0.2-1.2); Calcium 8.9 mg/dL (8.6-10.8); Globulin 2.9 g/dL (2.4-3.5); Potassium 4.1 mEq/L (3.5-4.5); Total Protein 5.7 g/dL (6.0-8.3)
[2016-06-03] MEDS: *HR* Enoxaparin 40 MG/0.4 ML SYRINGE SQ SCH (05:47)
--- NOTE | 2016-06-03 09:07 | Electrocardiograph Report ---
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
--- NOTE | 2016-06-03 09:08 | Electrocardiograph Report ---
[address] [place] [address] Test Date: 2016-06-01 Pat Name: Niesha Coates Department: 102 Room: 2NE32 Gender: F Retail Account Representative: : 1935 Requested By: Reinaldo Sterling Order Number: [id number] Reading MD: Jose Rojas MD Measurements Intervals [place] Rate: 70 P: 66 CT: 353 QRS: -12 QRSD: 83 T: 10 QT: 382 QTc: 403 Interpretive Statements SINUS RHYTHM WITH FIRST DEGREE AV BLOCK MINIMAL VOLTAGE CRITERIA FOR LVH INFERIOR MYOCARDIAL INFARCTION, PROBABLY OLD Electronically Signed On 06-03-2016 9:06:43 EDT by Jose Rojas MD
--- NOTE | 2016-06-03 10:48 | ECHO - Doppler Report ---
Echocardiogram Name: Niesha Coates Date of Study: 06/02/2016 Date: 1935 Ht: 68.0 in Medical Record#: [id number] Age: 81 Wt: 198.0 lb Gender: Female BSA: 2.04 Order #: [id number] Location: [facility] Room #: 2NE32 Reading Physician: Balaji Vega DO, IGNACIO, CHANELL LEMUS [place] Operator: Chantelle Lao RDCS Ordering Physician: Corazon Velasquez CNP Primary Physician: Chloé Lazaro MD Indications: Syncope Impressions: LVEF 60-65%. Normal LV chamber size and function. Mild concentric left ventricular hypertrophy. Mild left ventricular diastolic dysfunction. Atypical septal motion of unclear etiology. Normal right ventricular structure and function. Mild pulmonary hypertension. Estimated RVSP is 42 mmHg. No significant valvular dysfunction. Left Ventricular Wall Motion: Rest Echo Findings All wall segments showed normal motion. Findings: Study Quality * Technically adequate exam. ECG Findings * Normal sinus rhythm. Left Ventricle * LVEF 60-65%. * Normal LV chamber size and function. * Mild concentric left ventricular hypertrophy. * Mild left ventricular diastolic dysfunction. * Atypical septal motion of unclear etiology. Right Ventricle * Normal right ventricular structure and function. Left Atrium * Moderately dilated left atrium. Right Atrium * Mildly dilated right atrium. Interatrial Septum * Interatrial septum not well evaluated. Aortic Valve * Moderately calcified aortic valve leaflets. Unable to determine the number of leaflets. * No aortic regurgitation. * No aortic stenosis by Doppler. Mitral Valve * Moderate posterior mitral annular calcification. * Trace mitral regurgitation. * No mitral stenosis. Tricuspid Valve * Normal tricuspid valve structure and function. * Trace tricuspid regurgitation. * Mild pulmonary hypertension. * Estimated RVSP is 42 mmHg. * Estimated RA pressure is 5 mmHg. Pulmonic Valve * Normal pulmonic valve structure and function. * No pulmonic regurgitation. Aorta * Normally sized aortic root. Pericardium * The pericardium appears normal. IVC * Normal IVC dimensions and inspiratory collapse. Pulmonary Artery * Normal visualized portions of the main pulmonary artery. History Hypertension 03/17/2014 a Previous Echo was performed. Measurements: BP: 100/ 50 2D Normal Values RVIDd: 3.31 cm <2.7 cm IVSd: 1.20 cm 0.6 - 1.0 cm LVIDd: 4.87 cm 3.7 - 5.6 cm LVPWd: 1.20 cm 0.6 - 1.1 cm LVIDs: 2.71 cm 1.5 - 3.6 cm AO: 2.70 cm < 4.0 cm LA: 4.20 cm 2.0 - 4.0cm %FS: 44.40 cm >25 % LA volume: 86 Mitral Valve Peak E:.87 m/sec Peak A:.95 m/sec E/A Ratio:0.9 Peak E' Lat Branden:8.27 cm/s Peak E' Med Branden:6.31 cm/s E/E' Lat Ratio:10.5 E/E' Med Ratio:13.8 Tricuspid Valve TV Regurg Peak Grad: 37.00mmHg TV Regurg Peak Branden: 2.96m/sec Updated by Balaji Vega DO, FACFadumo, CHANELL LEMUS on 06/03/2016 10:42:31 AM electronically signed on 06/03/2016 10:44:20 AM with status of Final Wall Motion [place]: 1=Normal, 2=Hypokinesis, 3=Akinesis, 4=Dyskinesis, 5=Aneurysmal, 6=Hyperkinetic, X=Not Visualized (Blank)=Missing
[2016-06-03] MEDS: Losartan/HCTZ 50-12.5 TABLET PO SCH (11:40)
[2016-06-03] MEDS: Acetaminophen 325 MG TABLET PO PRN (12:24)
--- NOTE | 2016-06-03 12:27 | Discharge Summary ---
Date of Encounter: 06/03/16 Time of Encounter: 12:24 - Discharge Diagnosis (1) Syncope Priority: Primary Status: Acute Qualifiers: Syncope type: unspecified Qualified Code(s): R55 - Syncope and collapse (2) New onset atrial fibrillation Priority: Primary Status: Acute (3) Coronary artery disease Priority: Secondary Status: Acute Qualifiers: Coronary Disease-Associated Artery/Lesion type: [place] artery [place] vs. transplanted heart: [place] heart Associated angina: without angina Qualified Code(s): I25.10 - Atherosclerotic heart disease of [place] coronary artery without angina pectoris (4) Closed head injury Priority: Primary Status: Acute Qualifiers: Encounter type: subsequent encounter Qualified Code(s): S09.90XD - Unspecified injury of head, subsequent encounter (5) Hypothyroid Priority: Secondary Status: Acute Qualifiers: Hypothyroidism type: unspecified Qualified Code(s): E03.9 - Hypothyroidism , unspecified (6) DVT prophylaxis Priority: Secondary Status: Acute - Discharge Medications Home Medications: Aspirin Enteric Coated [Aspirin EC] 81 mg PO HS 11/18/14 [History] Cyanocobalamin (Vitamin B-12) [Vitamin B12] 1,000 mcg PO HS 11/18/14 [History] Isosorbide MONOnitrate (24 HR) [Imdur] 30 mg PO HS 11/18/14 [History] Metoprolol XL (24 HR) Succ [Toprol XL] 25 mg PO HS 11/18/14 [History] Nitroglycerin [Nitrostat] 0.4 mg SL Q5M PRN 11/18/14 [History] Calcitriol [Rocaltrol] 0.25 mcg PO HS 11/21/15 [History] Losartan/HCTZ [Hyzaar 50-12.5 Tablet] 1 each PO DAILY 11/21/15 [History] Arsen's Leg Cramps 1 each PO HS 06/01/16 [History] Promethazine [Phenergan] 25 mg PO Q6H PRN 06/01/16 [History] Allergies/Adverse Reactions: Allergies No Known Allergies Allergy (Verified 11/21/15 10:59) Procedures/tests Complete & Pending: Procedures Performed prior 72 hours Category Date Time Status EV carotid duplex imaging BI Routine Y 06/02/16 10:01 Completed EV echocardiogram Routine Y 06/02/16 10:01 Completed Date of admission: 06/01/16 10:51 Primary care physician: Chloé Campuzano Discharging clinician: Joey Molina - Patient Status Disposition: Home, Self-Care Condition: Good Functional capacity at discharge: uses cane/walker Overall status at discharge: patient is progressing back to baseline - Discharge Instructions Follow Up With: Chloé Lazaro MD [Primary Care Provider] - Balaji Vega DO [Partnered Physician] - - Diet and Activity Activity: increase activity as tolerated Diet: low fat, low cholesterol, low salt diet Interval History: Ms. Coates is a 81 year old female with hypertension, coronary artery disease, chronic kidney disease, GERD who presented to the emergency department this morning after an episode of syncope. Patient reports she was at the stove cooking eggs when she felt "warm feeling overcome her accompanied by lightheadedness and dizziness in the next thing she knew, she was on the floor. She had fainted and hit her head. She denies any palpitations, shortness of breath, headache prior to event, recent fever, chills, sweats, nausea or vomiting, diarrhea. She denies any weakness, numbness or tingling. Patient reports that when she sits up she does feel dizzy and nauseous. She hit the back of her head during her fall and reports that it was hurting until the ER numbed it for her megan. Evaluation in the emergency department included a CT of her head which showed no acute intracranial abnormality. Chest x-ray showed no acute cardiopulmonary disease. Her initial EKG showed A. fib with heart rate of 73 repeat EKG EKG showed sinus rhythm with first-degree AV block. Hospital course: Patient was hospitalized. Telemetry monitoring did not show any further atrial fibrillation. To me it looks like a multifocal atrial tachycardia. Patient and her family has a counselor regarding atrial fibrillation. Discussed with the patient at length regarding possible anticoagulation. Her [id number] 4 and HAS-BLED 4. Explained at length with the family regarding the meaning of the same. Patient and family decided at this point not to go with anticoagulation and they will be discussing this issue with their primary care provider. Patient and her family verbalized the risk of not starting anticoagulation which includes stroke, NV, respiratory failure, sudden . Patient was evaluated for syncopal episode. CT scan of the head was within normal limits. Echocardiogram showed ejection fraction of 60-65%. No regional wall motion abnormality. Ultrasound carotid was suggestive of no significant stenotic lesions. Plan: Patient can go home. Follow-up with the PCP in 1-2 weeks. [place] needs to be removed by PCP. Follow-up with cardiology in 1-2 weeks. QUESTIONS answered. At the time of discharge patient does not have questions concerns, update, recommendations regarding her hospital stay - Time Spent with Patient Total time spent providing and/or coordinating discharge services: - Constitutional Vitals: Temp Pulse Resp BP Pulse Ox 97.8 F 62 18 123/63 97 06/03/16 07:52 06/03/16 07:52 06/03/16 07:52 06/03/16 07:52 06/03/16 07:52 General appearance: Present: A&O X 3, pleasant, no acute distress - Head Head exam: Present: atraumatic, normocephalic - Eye Eye exam: Present: PERRL, conjuntiva pink, sclera anicteric Pupils: Present: PERRL - Neck Neck exam general surgery: Present: supple, trachea midline. Absent: lymphadenopathy - Respiratory Respiratory exam: Present: CTAB. Absent: accessory muscle use, rales, rhonchi, wheezes - Cardiovascular Cardiovascular exam: Present: RRR, +S1, +S2. Absent: diastolic murmur, gallop, rubs, systolic murmur - GI/Abdominal GI/Abdominal exam: Present: normal bowel sounds, soft, no peritoneal signs. Absent: distended, tenderness - Extremities Exam Extremities exam: Present: warm, radial pulses palpable and symetrical. Absent : calf tenderness, cyanotic, pedal edema - Neurological Exam Neurological exam: Present: CN II-XII intact, oriented X3, no focal deficits. Absent: pronater drift, facial droop, speech deficit - Skin Skin exam: Present: dry, intact
--- NOTE | 2016-06-03 12:40 | Carotid Imaging Report ---
Carotid Duplex Patient Name:Niesha Coates Order Number:[id number] Procedure Date:06/02/2016 Date:4Age:81 yrs Gender:Female Location:[facility] Room #: [id number] Parts Chaser:Chantelle Lao, RDLANDON Referring MD:Corazon Velasquez, MINI BAR ATTENDANT inside sales director:Chloé Lazaro MD Reading MD:Norberto Granados MD , FACS Primary Indications:Syncope and collapse Risk Factors Yes/No Hypertension Yes Impressions: Findings: Bilateral carotid system are essentially normal. Recommendations: Preliminary given to Dr Molina at bedside. Findings Carotid Duplex: Chaves scale imaging combined with Doppler flow analysis suggests normal findings bilaterally. Right: The right proximal common carotid artery has a PSV of 119 cm/s and a EDV of 24 cm/s. The right mid common carotid artery has a PSV of 99 cm/s and a EDV of 24 cm/s. The right distal common carotid artery has a PSV of 105 cm/s and a EDV of 27 cm/s. The right bifurcation has a PSV of 115 cm/s and a EDV of 31 cm/s. The right proximal internal carotid artery has a PSV of 97 cm/s and a EDV of 29 cm/s. The right mid internal carotid artery has a PSV of 99 cm/s and a EDV of 31 cm/s. The right distal internal carotid artery has a PSV of 93 cm/s and a EDV of 23 cm/s. The right eca has a PSV of 117 cm/s and a EDV of 15 cm/s. The right vertebral artery has a PSV of 69 cm/s and a EDV of 20 cm/s. There is antegrade spectral Doppler flow patterns. Left: The left proximal common carotid artery has a PSV of 109 cm/s and a EDV of 25 cm/s. The left mid common carotid artery has a PSV of 114 cm/s and a EDV of 27 cm/s. The left distal common carotid artery has a PSV of 129 cm/s and a EDV of 28 cm/s. The left bifurcation has a PSV of 65 cm/s and a EDV of 18 cm/s. The left proximal internal carotid artery has a PSV of 136 cm/s and a EDV of 28 cm/s. The left mid internal carotid artery has a PSV of 115 cm/s and a EDV of 29 cm/s. The left distal internal carotid artery has a PSV of 125 cm/s and a EDV of 34 cm/s. The left eca has a PSV of 157 cm/s and a EDV of 14 cm/s. The left vertebral artery has a PSV of 54 cm/s and a EDV of 17 cm/s. There is antegrade spectral Doppler flow patterns. Prior Study: No prior study available for comparison. Carotid Results Right PSV EDV Assessment Proximal CCA 119 24 Mid CCA 99 24 Distal CCA 105 27 Bifurcation 115 31 Proximal ICA 97 29 Mid ICA 99 31 Distal ICA 93 23 ECA 117 15 Vertebral Artery 69 20 Antegrade Flow Left PSV EDV Assessment Proximal CCA 109 25 Mid CCA 114 27 Distal CCA 129 28 Bifurcation 65 18 Proximal ICA 136 28 Mid ICA 115 29 Distal ICA 125 34 ECA 157 14 Vertebral Artery 54 17 Antegrade Flow Ratio's Right ICA/CCA Ratio: 1.00 ICA/CCA Values: 99/99 Left ICA/CCA Ratio: 1.01 ICA/CCA Values: 115/114 Updated by Norberto Granados MD, FACS on 06/03/2016 12:33:56 PM Norberto Granados MD electronically signed on 06/03/2016 12:34:26 PM with status of Final
[2016-06-03] MEDS: Cyanocobalamin (B-12) 1,000 MCG TABLET PO SCH (21:32)
[2016-06-03] MEDS: Aspirin Enteric Coated 81 MG Tablet PO SCH (21:32)
[2016-06-03] MEDS: Metoprolol XL (24 HR) Succ 25 MG TAB.ER.24H PO SCH (21:32)
[2016-06-03] MEDS: Isosorbide MONOnitrate (24 HR) 30 MG TAB.ER.24H PO SCH (21:32)
[2016-06-04 06:10] LABS: Albumin 2.9 g/dL (3.5-5.0); Albumin/Globulin Ratio 0.9 (1.1-2.2); Bilirubin,Total 1.1 mg/dL (0.2-1.2); Calcium 9.4 mg/dL (8.6-10.8); Globulin 3.1 g/dL (2.4-3.5)
[2016-06-04 06:15] LABS: Basophils % 0.3 %; Eosinophils # 0.3 K/mcL (0.0-0.6); Eosinophils % 5.1 %; Hematocrit 35.6 % (35.3-44.9); Hemoglobin 12.1 g/dL (11.5-15.4); Immature Granulocytes % 0.2 % (0-4); Lymphocytes # 1.3 K/mcL (0.6-4.6); Lymphocytes % 23.2 %; Mean Corpuscular Hemoglobin 31.1 pg (28.0-33.3); Mean Corpuscular Volume 91.5 fL (83.0-100.0); Mean Platelet Volume 11.6 fL (9.4-12.4); Monocytes # 0.6 K/mcL (0.0-1.3); Monocytes % 10.6 %; Neutrophils # 3.5 K/mcL (1.6-8.9); Platelet Count 173 K/mcL (140-400); Red Blood Count 3.89 M/mcL (3.82-4.97); Red Cell Distribution Width 12.3 % (11.5-14.5); Segmented Neutrophils % 60.6 %
[2016-06-04] MEDS: Losartan/HCTZ 50-12.5 TABLET PO SCH (08:12)
[2016-06-04] MEDS: *HR* Enoxaparin 40 MG/0.4 ML SYRINGE SQ SCH (08:12)
--- NOTE | 2016-06-04 08:40 | Internal Med Progress Note ---
Date of Encounter: 06/04/16 Time of Encounter: 08:38 - Assessment and plan (1) Syncope Current Visit: Yes Status: Acute Assessment and plan: Discharge held last night due to lightheadedness. She is feeling better today and ready to go home. D/C order as written yesterday. Qualifiers: Syncope type: vasovagal syncope Qualified Code(s): R55 - Syncope and collapse (2) Laceration of scalp Current Visit: Yes Status: Acute Qualifiers: Encounter type: subsequent encounter Qualified Code(s): S01.01XD - Laceration without foreign body of scalp, subsequent encounter (3) Closed head injury Current Visit: Yes Status: Acute Assessment and plan: No acute findings at this time. Qualifiers: Encounter type: subsequent encounter Qualified Code(s): S09.90XD - Unspecified injury of head, subsequent encounter (4) New onset atrial fibrillation Current Visit: Yes Status: Acute Assessment and plan: Pt and family has had prior discussion regarding anticoagulation. She will follow with PCP for further discussion. (5) Hypothyroid Current Visit: Yes Status: Acute Assessment and plan: Replacement medication Qualifiers: Hypothyroidism type: unspecified Qualified Code(s): E03.9 - Hypothyroidism , unspecified - Subjective Interval history: Ms. Coates has been in observation due to syncopal episode. She remained in the hospital last evening due to feeling lightheaded when standing up. Ms. Coates is feeling at baseline at this time. She ate a good breakfast. She feels ready to go home today. - Constitutional Vitals: Temp Pulse Resp BP Pulse Ox 98.1 F 59 16 145/72 97 06/04/16 05:44 06/04/16 05:44 06/04/16 05:44 06/04/16 05:44 06/04/16 05:44 General appearance: Present: A&O X 3, pleasant, answers questions appropriately - Head Head exam: Present: normocephalic Additional comments: Epes posterior scalp. - Eye Eye exam: Present: EOMI, conjuntiva pink - ENT ENT exam: Present: mucous membranes moist - Respiratory Respiratory exam: Present: CTAB. Absent: rhonchi, wheezes - Cardiovascular Cardiovascular exam: Present: RRR. Absent: systolic murmur, tachycardia - GI/Abdominal GI/Abdominal exam: Present: soft. Absent: tenderness - Extremities Exam Extremities exam: Present: warm. Absent: pedal edema - Neurological Exam Neurological exam: Present: alert, oriented X3. Absent: no focal deficits - Psychiatric Psychiatric exam: Present: normal affect, normal mood - Skin Skin exam: Present: warm. Absent: rash Internal Medicine: Result - Labs CBC & Chem 7: 06/04/16 05:36 06/04/16 05:36 Labs: Short CBC 06/04/16 Range/Units 05:36 WBC 5.7 (4.3-11.1) K/mcL Hgb 12.1 (11.5-15.4) g/dL Hct 35.6 (35.3-44.9) % Plt Count 173 (140-400) K/mcL Neutrophils # 3.5 (1.6-8.9) K/mcL BMP 06/04/16 05:36 Sodium 138 Potassium 4.0 Chloride 107 Carbon Dioxide 22 BUN 27 H Creatinine 1.17 H Glucose 88 Calcium 9.4 Liver Function 06/04/16 Range/Units 05:36 Total Bilirubin 1.1 (0.2-1.2) mg/dL AST 17 (5-34) Units/L ALT 12 (0-55) Units/L Alkaline Phosphatase 75 (38-126) Units/L Albumin 2.9 L (3.5-5.0) g/dL - ABG Interpretation ABG results: PT/INR, D-dimer PT 10.6 Seconds (9.4-12.1) 06/01/16 09:16 Consult Discharge Plan - Plan Instructions: Atrial Fibrillation (DC), Syncope (DC), Hypothyroidism (DC) Additional Instructions: As tolerated. Please use walker or cane when ambulating if you feel dizzy. If you feel dizzy please sit down and rest, do not get back up if dizzy until this goes away. If it doesn't go away call 911. Referrals: Leela Patel CNP [Advanced Practice Nurse] - 06/12/16 1:30 pm (Followup appt after hospitalization and Also, ask them if megan can be taken out from laceration to back of head. Primary Care Physician to take these out.) Balaji Vega DO [Partnered Physician] - (appointment requested. cardiology will call with appointment. ) Chloé Lazaro MD [Primary Care Provider] -
[2016-06-04 10:42] VITALS: BP 145/72
== END 2016-06-04 10:00 | disposition home or self-care (01) ==
LOC: 2NENU 08:54 → EMEROO 08:54 → SUATTDRO 10:51 → 2NENU 11:43
PROVIDERS: ADMIT Nurse Practitioner Family; ATTEND Internal Medicine

== ENCOUNTER 2017-05-11 10:56 | Observation (INO) ==
[2017-05-11] MEDS ORDERED: Ondansetron 4 MG/2 ML VIAL IVP ONE (11:05)
[2017-05-11] MEDS ORDERED: 0.9 % Sodium Chloride 1,000 ML IVC ONE (11:05)
--- NOTE | 2017-05-11 11:24 | Emergency Department Note ---
START Narrative - START START: I examined this patient and my medical decision-making was reviewed with the emergency medicine resident. I agree with the documented findings, disposition and treatment plan as described except to the extent set forth below. Patient seen with emergency medicine resident Dr. Opal Lentz, Please see a copy of his note for details of the H&P, ED evaluation, management and disposition. I have independently evaluated the patient and confirmed appropriate portions of the history and physical exam. Briefly: 82-year-old female history of atrial fibrillation presents with the lightheadedness near syncope also left flank pain. About a week ago she had 3 ureteral stents placed by Dr. Richards at [facility]. Patient denies vomiting or nausea at this time. Almost pain-free at this time. She says she feels like this when her atrial fibrillation acts up. EKG shows sinus rhythm with no acute ischemic changes. Patient having screening labs IV fluids urinalysis pending. Disposition pending.
--- NOTE | 2017-05-11 11:51 | Emergency Department Note ---
Disposition Clinical Impression: Dehydration UTI (urinary tract infection) Qualifiers: Urinary tract infection type: acute cystitis Hematuria presence: with hematuria Qualified Code(s): N30.01 - Acute cystitis with hematuria Disposition: Admitted As Inpatient Condition: Good Forms: ED Satisfaction Letter Time of Disposition: 14:00 General Adult HPI - General Chief complaint: ED Weakness Stated complaint: generalized weakness Time Seen by Provider: 05/11/17 11:03 Source: patient Limitations: no limitations Nursing Notes Reviewed: Yes Vital Signs Reviewed: Yes - History of Present Illness HPI Narrative: Several day history of generalized weakness. States it got worse this morning. Concerned that she is possibly in atrial fibrillation this morning as she got very diaphoretic. Denies any chest pain. States that she has not ever felt it go irregular however she has history of it. Had some burning on urination yesterday. The urologist called her in Different antibiotics. Pain Scale: 0 - Related Data Home Medications Medication Instructions Recorded Confirmed Metoprolol XL (24 HR) Succ [Toprol 25 mg PO HS 11/18/14 04/26/17 XL] Nitroglycerin [Nitrostat] 0.4 mg SL Q5M PRN 11/18/14 04/26/17 Calcitriol [Rocaltrol] 0.25 mcg PO HS 11/21/15 04/26/17 Losartan/HCTZ [Hyzaar 50-12.5 1 tab PO DAILY 11/21/15 04/26/17 Tablet] Arsen's Leg Cramps 1 each PO HS 06/01/16 04/26/17 Apixaban [Eliquis] 5 mg PO BID 04/26/17 04/26/17 Ergocalciferol (VITAMIN D2) 50,000 unit PO QWEEK 04/26/17 04/26/17 [Vitamin D2] Isosorbide MONOnitrate (24 HR) 30 mg PO DAILY 04/26/17 04/26/17 [Imdur] Previous Rx's Medication Instructions Recorded Amoxicillin 500 mg PO Q8H 12 Days #36 tablet 04/27/17 Fluconazole [Diflucan] 100 mg PO DAILY 12 Days #12 tablet 04/27/17 Allergies Allergy/AdvReac Type Severity Reaction Status Date / Time No Known Allergies Allergy Verified 05/11/17 11:04 All systems ED: reviewed and negative except as stated. Constitutional: Denies: fever, chills Cardiovascular: Denies: chest pain, palpitations, syncope Respiratory: Denies: cough, dyspnea Gastrointestinal: Reports: abdominal pain (Suprapubic yesterday. Burning sensation). Denies: nausea, vomiting, diarrhea Genitourinary: Reports: dysuria, other (Dark-colored urine). Denies: urgency, frequency Musculoskeletal: Denies: back pain, neck pain Integumentary: Denies: rash, abrasion Neurological: Reports: weakness. Denies: headache Endocrine: Reports: fatigue Past Medical History - Past Medical History Attestation: Yes The following information was validated with the patient. Source: patient Medical history: Reports: coronary artery disease, hypertension, kidney stones, other Surgical history: Reports: herniorrhaphy, hysterectomy, other Psychiatric history: Reports: no psych history PLASTER FOREMAN history: Reports: no PLASTER FOREMAN history - Social History Smoking Status: Never smoker Smokeless Tobacco Status: No Alcohol use: Reports: none Drug use: Reports: none Physical Exam - General Limitations: no limitations General appearance: alert, in no apparent distress - Head Head exam: atraumatic, normocephalic, normal inspection - Eye Eye exam: Present: normal appearance, PERRL, EOMI - ENT ENT exam: normal exam, normal oropharynx, mucous membranes moist - Neck Neck exam: Present: normal inspection, full ROM, trachea midline - Chest Chest inspection: Present: normal inspection, symmetric chest wall rise. Absent : tenderness - Respiratory Respiratory exam: Present: normal lung sounds bilaterally. Absent: respiratory distress - Cardiovascular Cardiovascular exam: Present: regular rate, normal rhythm, normal heart sounds - Abdominal Exam Abdominal exam: Present: soft, Non-Tender. Absent: tenderness, distention, guarding, rebound, rigidity - Extremities Exam Extremities exam: Present: normal inspection, full ROM. Absent: tenderness, pedal edema - Back Exam Back exam: Present: normal inspection, full ROM. Absent: tenderness - Neurological Exam Neurological exam: Present: alert, oriented X3 - Psychiatric Psychiatric exam: Present: normal affect, normal mood - Skin Skin exam: Present: warm, dry, intact, normal color. Absent: rash, cyanosis Course Course Narrative: Female patient presenting to emergency department complaining of generalized weakness. She states this started this morning. States she feels like this whenever her heart goes into atrial fibrillation. This happen previously. Normal sinus rhythm at this time. She states that this morning she broke out into cold sweat. She states she is not able to feel that her heart is out of rhythm. She denies palpitations. She denies chest pain currently. She recently had ureteral stents placed by Dr. Richards. She states that she does have some burning on urination. They switched her antibiotics last night to TMP -SMX. She reports she is no longer having the burning there is no pain suprapubically when I palpate. Soft and nontender. Her heart tones are normal lung sounds are clear. Cardiac workup was negative. She does have an elevated creatinine which is normal for patient. I spoke with Dr. Richards who recommends that the patient is admitted to place patient on Rocephin and an antifungal. The patient appears clinically dehydrated. We did give her some fluid while she is here. He is also reporting that she has generalized weakness. The family states the patient is unable to take care of herself at home. With her generalized weakness probability of being in A. fib this morning and UTI we will admit patient to the hospital on antibiotics. She is agreeable to this. - Consultations Consultation #1: I spoke with Dr. Richards. He recommends that we start the patient on Rocephin and an antifungal as she grew yeast on her previous urine culture and admission to medicine. Time: 13:33 Vital Signs Temperature 97.9 F 05/11/17 10:59 Pulse Rate 80 05/11/17 10:59 Respiratory Rate 18 05/11/17 10:59 Blood Pressure 162/73 05/11/17 10:59 O2 Sat by Pulse Oximetry 96 05/11/17 10:59 Temperature 97.9 F 05/11/17 10:59 Pulse Rate 80 05/11/17 10:59 Respiratory Rate 18 05/11/17 10:59 Blood Pressure 162/73 05/11/17 10:59 O2 Sat by Pulse Oximetry 96 05/11/17 10:59 Oxygen Delivery Oxygen Delivery Room Air Medical Decision Making - Medical Records Medical records reviewed: Yes I reviewed the patient's medical records. - Lab Data Lab results reviewed: Yes I reviewed the patient's lab results. Result diagrams: 05/11/17 11:32 05/11/17 11:32 Lab Results 05/11/17 05/11/17 05/11/17 Range/Units 11:07 11:19 11:32 WBC 5.8 (4.3-11.1) K/mcL RBC 4.18 (3.82-4.97) M/mcL Hgb 12.5 (11.5-15.4) g/dL Hct 38.6 (35.3-44.9) % MCV 92.3 (83.0-100.0) fL MCH 29.9 (28.0-33.3) pg MCHC 32.4 (31.6-35.5) g/dL RDW 12.8 (11.5-14.5) % Plt Count 194 (140-400) K/mcL MPV 11.2 (9.4-12.4) fL Immature Gran % 0.2 (0-4) % Seg Neutrophils % 72.0 % Lymphocytes % 15.6 % Monocytes % 9.0 % Eosinophils % 2.9 % Basophils % 0.3 % Neutrophils # 4.2 (1.6-8.9) K/mcL Lymphocytes # 0.9 (0.6-4.6) K/mcL Monocytes # 0.5 (0.0-1.3) K/mcL Eosinophils # 0.2 (0.0-0.6) K/mcL Basophils # 0.0 (0.0-0.2) K/mcL Sodium (136-145) mEq/L Potassium (3.5-5.1) mEq/L Chloride (98-107) mEq/L Carbon Dioxide (23-29) mEq/L BUN (8-23) mg/dL Creatinine (0.60-1.20) mg/dL Est GFR ( Amer) (> 60) Est GFR (Non-Af Amer) (> 60) BUN/Creatinine Ratio (6-26) Glucose (70-105) mg/dL POC Glucose 87 (58-89) Calculated Osmolality (280-300) Calcium (8.6-10.3) mg/dL Total Bilirubin (0.3-1.0) mg/dL AST (13-39) Units/L ALT (7-52) Units/L Alkaline Phosphatase (34-104) Units/L Troponin I (< 0.04) ng/mL Serum Total Protein (6.4-8.9) g/dL Albumin (3.5-5.7) g/dL Globulin (2.4-3.5) g/dL Albumin/Globulin Ratio (1.1-2.2) Ur Specimen Adequacy See below A Urine Color Brown (Yellow) Urine Clarity Cloudy A (Clear) Urine pH 5.5 (5.0-8.0) pH Units Ur Specific [place] 1.017 (1.010-1.025) Urine Protein 100 H (Neg-Trace) mg/dL Urine Glucose (UA) Normal (Normal) mg/dL Urine Ketones Negative (Negative) mg/dL Urine Blood Large H (Negative) Urine Nitrite Negative (Negative) Urine Bilirubin Negative (Negative) Urine Urobilinogen Normal (Normal) mg/dL Ur Leukocyte Esterase Moderate H (Negative) Ur Culture Indicated? YES A (NO) 05/11/17 Range/Units 11:32 WBC (4.3-11.1) K/mcL RBC (3.82-4.97) M/mcL Hgb (11.5-15.4) g/dL Hct (35.3-44.9) % MCV (83.0-100.0) fL MCH (28.0-33.3) pg MCHC (31.6-35.5) g/dL RDW (11.5-14.5) % Plt Count (140-400) K/mcL MPV (9.4-12.4) fL Immature Gran % (0-4) % Seg Neutrophils % % Lymphocytes % % Monocytes % % Eosinophils % % Basophils % % Neutrophils # (1.6-8.9) K/mcL Lymphocytes # (0.6-4.6) K/mcL Monocytes # (0.0-1.3) K/mcL Eosinophils # (0.0-0.6) K/mcL Basophils # (0.0-0.2) K/mcL Sodium 137 (136-145) mEq/L Potassium 4.0 (3.5-5.1) mEq/L Chloride 110 H (98-107) mEq/L Carbon Dioxide 19 L (23-29) mEq/L BUN 40 H (8-23) mg/dL Creatinine 1.88 H (0.60-1.20) mg/dL Est GFR ( Amer) 31 L (> 60) Est GFR (Non-Af Amer) 26 L (> 60) BUN/Creatinine Ratio 21 (6-26) Glucose 99 (70-105) mg/dL POC Glucose (58-89) Calculated Osmolality 294 (280-300) Calcium 8.6 (8.6-10.3) mg/dL Total Bilirubin 0.4 (0.3-1.0) mg/dL AST 15 (13-39) Units/L ALT 10 (7-52) Units/L Alkaline Phosphatase 93 (34-104) Units/L Troponin I < 0.03 (< 0.04) ng/mL Serum Total Protein 6.0 L (6.4-8.9) g/dL Albumin 3.3 L (3.5-5.7) g/dL Globulin 2.7 (2.4-3.5) g/dL Albumin/Globulin Ratio 1.2 (1.1-2.2) Ur Specimen Adequacy Urine Color (Yellow) Urine Clarity (Clear) Urine pH (5.0-8.0) pH Units Ur Specific [place] (1.010-1.025) Urine Protein (Neg-Trace) mg/dL Urine Glucose (UA) (Normal) mg/dL Urine Ketones (Negative) mg/dL Urine Blood (Negative) Urine Nitrite (Negative) Urine Bilirubin (Negative) Urine Urobilinogen (Normal) mg/dL Ur Leukocyte Esterase (Negative) Ur Culture Indicated? (NO) - Radiology Data Radiology results reviewed: Yes I reviewed the patient's radiology results. Chest X-Ray 05/11/17 11:05 IMPRESSION: Stable exam with no acute cardiopulmonary findings. D/ / Merlene Gregory MD / Merlene Gregory MD Interpreting Provider: Merlene Gregory MD
[2017-05-11 12:01] LABS: Clarity,Urine Cloudy (Clear); Color,Urine Brown (Yellow)
[2017-05-11 12:02] LABS: Bilirubin,Urine Negative (Negative); Blood,Urine Large (Negative); Glucose,Urine (UA) Normal (Normal); Ketones,Urine Negative (Negative); Leukocyte Esterase,Urine Moderate (Negative); Nitrite,Urine Negative (Negative); PH,Urine 5.5 pH Units (5.0-8.0); Protein,Urine 100 mg/dL (Neg-Trace); Specific Gravity,Urine 1.017 (1.010-1.025); Urobilinogen,Urine Normal (Normal)
[2017-05-11 12:06] LABS: Basophils % 0.3 %; Eosinophils # 0.2 K/mcL (0.0-0.6); Eosinophils % 2.9 %; Hematocrit 38.6 % (35.3-44.9); Hemoglobin 12.5 g/dL (11.5-15.4); Immature Granulocytes % 0.2 % (0-4); Lymphocytes # 0.9 K/mcL (0.6-4.6); Lymphocytes % 15.6 %; Mean Corpuscular HGB Conc 32.4 g/dL (31.6-35.5); Mean Corpuscular Hemoglobin 29.9 pg (28.0-33.3); Mean Corpuscular Volume 92.3 fL (83.0-100.0); Mean Platelet Volume 11.2 fL (9.4-12.4); Monocytes # 0.5 K/mcL (0.0-1.3); Neutrophils # 4.2 K/mcL (1.6-8.9); Platelet Count 194 K/mcL (140-400); Red Blood Count 4.18 M/mcL (3.82-4.97); Red Cell Distribution Width 12.8 % (11.5-14.5)
[2017-05-11 12:08] LABS: Alanine Aminotransferase 10 Units/L (7-52); Albumin 3.3 g/dL (3.5-5.7); Albumin/Globulin Ratio 1.2 (1.1-2.2); Alkaline Phosphatase 93 Units/L (34-104); Aspartate Amino Transferase 15 Units/L (13-39); BUN/Creatinine Ratio 21 (6-26); Bilirubin,Total 0.4 mg/dL (0.3-1.0); Blood Urea Nitrogen 40 mg/dL (8-23); Calcium 8.6 mg/dL (8.6-10.3); Carbon Dioxide 19 mEq/L (23-29); Chloride 110 mEq/L (98-107); Globulin 2.7 g/dL (2.4-3.5); Glucose 99 mg/dL (70-105); Osmolality,Calculated 294 (280-300); Sodium 137 mEq/L (136-145); Troponin I < 0.03 ng/mL (< 0.04); eGFR For African Americans 31 (> 60); eGFR For Non-African Americans 26 (> 60)
[2017-05-11] MEDS ORDERED: cefTRIAXone 1,000 MG in Water for inj. (sterile) 20 ML 10 ML IVP ONE (13:47)
[2017-05-11] MEDS ORDERED: Fluconazole 400 MG/200 ML 400 MG/200 ML BAG IVPB ONE (14:09)
--- NOTE | 2017-05-11 15:12 | Internal Med History&Physical ---
<Cassy Goins - Last Filed: 05/11/17 16:19> Date of Encounter: 05/11/17 Time of Encounter: 14:50 Assessment and Plan (1) UTI (urinary tract infection) Current visit: Yes Status: Acute Urine indicative of UTI. Patient reports dysuria and abdominal pain, resolved now. She was treated outpatient with Bactrim, no change in condition, pt presented to the ED for worsening condition. Urine cloudy with large amount of blood, moderate amount of leukocyte esterase, culture pending. No fever, no tachycardia, patient is normotensive. No signs of sepsis or SIRS. Patient was treated with 1 g of Rocephin in the emergency department, will continue and narrow antibiotic choice as culture and sensitivity are reported. Qualifiers: Urinary tract infection type: acute cystitis Hematuria presence: with hematuria Qualified Code(s): N30.01 - Acute cystitis with hematuria (2) Abdominal pain Current visit: Yes Status: Acute Patient with low abdominal pain last night, patient reports it has since resolved. Her abdomen is soft and nontender. She denies nausea, vomiting, diarrhea or constipation. Likely secondary to urinary tract infection. Plan as above. Qualifiers: Abdominal location: lower abdomen, unspecified Qualified Code(s): R10.30 - Lower abdominal pain, unspecified (3) Afib Current visit: Yes Status: Acute Rate controlled. Continue BB and Eliquis. Telemetry Qualifiers: Atrial fibrillation type: chronic Qualified Code(s): I48.2 - Chronic atrial fibrillation (4) Hyperparathyroidism Current visit: Yes Status: Acute Cause of recurrent renal calculi, pt reports that she follows with Dr. Thomas and does not see endocrinology. Continue Calcitriol. (5) Generalized weakness Current visit: Yes Status: Acute Pt reports 2-3 days of increasing weakness, worse today. Cause is multifactorial including dehydration and UTI. IVF hydration, treat urinary tract infection, PT/OT consultations. (6) CKD (chronic kidney disease) stage 3, GFR 30-59 ml/min Current visit: Yes Status: Acute Stable, mild JEANETTE on chronic CKD. Gentle IVF hydration Avoid nephrotoxins Monitor labs daily (7) Dehydration Current visit: Yes Status: Acute Family reports poor po fluid intake. Pt denies n/v/d or fluid losses. IVF hydration 0.9NS at 75ml/hour Monitor labs. (8) Coronary artery disease Current visit: Yes Status: Chronic Chronic. Continue BB, Imdur, and Eliquis. Telemetry Pt denies chest pain. Qualifiers: Coronary Disease-Associated Artery/Lesion type: [place] artery [place] vs. transplanted heart: [place] heart Associated angina: without angina Qualified Code(s): I25.10 - Atherosclerotic heart disease of [place] coronary artery without angina pectoris (9) DVT prophylaxis Current visit: Yes Status: Acute Pt on Eliquis. Internal Medicine - H&P: HPI Chief complaint: Abdominal pain Admitted From: Home Plans for Post Hospital Care: Home History of present illness: Ms. Coates is a 82 year old female with past medical history of A. fib, hypertension, coronary artery disease, renal calculi, hyperparathyroidism, chronic kidney disease stage III. Patient presents to the emergency department with low abdominal pain that has resolved, generalized weakness for 3 days, worse this morning. Patient has been treated recently with ureteral stents and has been seen by Dr. Richards for recurrent renal calculi. She is to have the stents removed in 2 days. Urine collected in the emergency department is indicative of UTI. She received gentle IV fluid hydration and 1 g of Rocephin IV. Patient reports general malaise, weakness, fatigue that appears to be better since arrival to the emergency department. She denies headache or blurred vision, no neck pain, no nausea or vomiting, no diarrhea. She denies chest pain or shortness of breath. She denies abdominal pain. Patient is being admitted for further evaluation and treatment of urinary tract infection. Dr. Richards was consulted from the emergency department. Past Med Surg Social Fam HX - Past Medical History Medical history: atrial fibrillation, coronary artery disease, hypertension, kidney stones, other Psychiatric history: no psych history - Past Surgical History Surgical History: herniorrhaphy, hysterectomy, other - Social History Smoking Status: Never smoker Smokeless Tobacco Status: No Alcohol use: none Drug use: none - Family History Mother History Unknown: Yes Living Status: Age at : 96 Father History Unknown: Yes Family Member Ethnicity: Non- Living Status: Son Hx Family Genitourinary Disorders: Yes Internal Medicine - H&P: Meds Metoprolol XL (24 HR) Succ [Toprol XL] 25 mg PO HS 11/18/14 [History] Nitroglycerin [Nitrostat] 0.4 mg SL Q5M PRN 11/18/14 [History] Calcitriol [Rocaltrol] 0.25 mcg PO HS 11/21/15 [History] Losartan/HCTZ [Hyzaar 50-12.5 Tablet] 1 tab PO DAILY 11/21/15 [History] Arsen's Leg Cramps 1 each PO HS 06/01/16 [History] Apixaban [Eliquis] 5 mg PO BID 04/26/17 [History] Ergocalciferol (VITAMIN D2) [Vitamin D2] 50,000 unit PO FR 04/26/17 [History] Isosorbide MONOnitrate (24 HR) [Imdur] 30 mg PO DAILY 04/26/17 [History] Fluconazole [Diflucan] 100 mg PO DAILY 12 Days #12 tablet 04/27/17 [Rx] Sulfamethoxazole/Trimeth DS [Bactrim Ds] 1 tab PO BID 05/11/17 [History] 3 Allergy/AdvReac Type Severity Reaction Status Date / Time No Known Allergies Allergy Verified 05/11/17 14:29 All Systems PM: A 10-system review of systems was performed and is negative for pertinent findings except as documented above in the HPI. - Constitutional Constitutional: fatigue, lethargy, malaise, weakness, no anorexia, no chills, no excessive sweating, no fever(s), no falls, no night sweats - EENT Eyes: no change in vision, no discharge, no photophobia Ears: no ear pain Nose, mouth and throat: no dysphagia, no hoarseness, no nasal congestion, no nasal discharge, no post-nasal drip, no sinus pain, no sinus pressure, no sore throat - Cardiovascular Cardiovascular ROS IM: no chest pain, no dyspnea on exertion, no lightheadedness , no palpitations - Respiratory Respiratory: no dyspnea, no wheezing, no pain on inspiration, no chest congestion - Gastrointestinal Gastrointestinal: abdominal pain, no bloating, no change in bowel habits, no constipation, no cramping, no heartburn, no nausea, no vomiting - Genitourinary Genitourinary: dysuria, urinary frequency, urinary urgency, no flank pain - Musculoskeletal Musculoskeletal ROS IM: muscle weakness, no limited range of motion, no numbness , no tingling - Integumentary Integumentary IM: no rash - Neurological Neurological ROS: no headache(s), no loss of vision, no numbness, no tingling - Constitutional Vitals: Temp Pulse Resp BP Pulse Ox 97.7 F 72 15 139/72 97 05/11/17 14:34 05/11/17 14:34 05/11/17 14:34 05/11/17 14:34 05/11/17 14:34 General appearance: Present: cooperative, A&O X 3, pleasant, no acute distress, answers questions appropriately - Head Head exam: Present: atraumatic, normal inspection, normocephalic - Eye Eye exam: Present: conjuntiva pink, sclera anicteric - Neck Neck exam general surgery: Present: supple, trachea midline. Absent: lymphadenopathy, tenderness - Respiratory Respiratory exam: Present: CTAB. Absent: accessory muscle use, chest wall tenderness, rales, respiratory distress, rhonchi, wheezes - Cardiovascular Cardiovascular exam: Present: RRR, +S1, +S2. Absent: diastolic murmur, gallop, rubs, systolic murmur - GI/Abdominal GI/Abdominal exam: Present: normal bowel sounds, soft. Absent: distended, hepatomegaly, tenderness - Extremities Exam Extremities exam: Present: normal capillary refill, warm, radial pulses palpable and symmetrical. Absent: calf tenderness, cyanotic, pedal edema, tenderness - Neurological Exam Neurological exam: Present: alert, oriented X3, no focal deficits. Absent: facial droop, speech deficit - Skin Skin exam: Present: dry, intact, normal color, warm. Absent: rash Internal Med - H&P Results - Labs CBC & Chem 7: 05/11/17 11:32 05/11/17 11:32 <Paul Tierney - Last Filed: 05/12/17 11:03> Date of Encounter: 05/12/17 Internal Medicine - H&P: HPI History of present illness: Ms. Coates is a 82 year old female All Systems PM: A 10-system review of systems was performed and is negative for pertinent findings except as documented above in the HPI. - Constitutional Vitals: Temp Pulse Resp BP Pulse Ox 97.7 F 50 16 96/56 100 05/12/17 10:51 05/12/17 10:51 05/12/17 10:51 05/12/17 10:51 05/12/17 10:51 Internal Med - H&P Results - Labs CBC & Chem 7: 05/12/17 05:20 05/12/17 05:20 Labs: Short CBC 05/12/17 Range/Units 05:20 WBC 4.3 (4.3-11.1) K/mcL Hgb 11.3 L (11.5-15.4) g/dL Hct 35.2 L (35.3-44.9) % Plt Count 166 (140-400) K/mcL Neutrophils # 2.5 (1.6-8.9) K/mcL BMP 05/12/17 05:20 Sodium 139 Potassium 4.1 Chloride 113 H Carbon Dioxide 21 L BUN 35 H Creatinine 1.57 H Glucose 94 Calcium 7.8 L Attestation: My signature below is to certify that this patient is under my care and that I, or nurse practitioner, or a physician's personal injury legal assistant working with me, has a face-to -face encounter with this patient.
[2017-05-11] MEDS ORDERED: Naloxone 0.4 MG/ML INJ IVP PRN (15:52)
[2017-05-11] MEDS ORDERED: Acetaminophen 325 MG TABLET PO PRN (15:53)
[2017-05-11] MEDS: 0.9 % Sodium Chloride 1,000 ML IVC SCH (16:12)
[2017-05-11] MEDS: traMADol 50 MG TABLET PO PRN (19:31)
[2017-05-11] MEDS: Metoprolol XL (24 HR) Succ 25 MG TAB.ER.24H PO SCH (19:31)
[2017-05-11] MEDS: [UNRECOGNIZED DRUG - OTHER] PO SCH (20:53)
[2017-05-11] MEDS ORDERED: Apixaban 5 MG TABLET PO SCH (21:00)
[2017-05-11] MEDS ORDERED: Melatonin 3 MG TABLET PO PRN (22:28)
[2017-05-12] MEDS: 0.9 % Sodium Chloride 1,000 ML IVC SCH ×2 (03:58→17:28)
[2017-05-12 05:48] LABS: Basophils % 0.2 %; Eosinophils # 0.2 K/mcL (0.0-0.6); Eosinophils % 5.2 %; Hematocrit 35.2 % (35.3-44.9); Hemoglobin 11.3 g/dL (11.5-15.4); Immature Granulocytes % 0.2 % (0-4); Lymphocytes % 23.5 %; Mean Corpuscular HGB Conc 32.1 g/dL (31.6-35.5); Mean Corpuscular Hemoglobin 30.1 pg (28.0-33.3); Mean Corpuscular Volume 93.9 fL (83.0-100.0); Mean Platelet Volume 11.1 fL (9.4-12.4); Monocytes # 0.5 K/mcL (0.0-1.3); Neutrophils # 2.5 K/mcL (1.6-8.9); Platelet Count 166 K/mcL (140-400); Red Blood Count 3.75 M/mcL (3.82-4.97); Red Cell Distribution Width 12.9 % (11.5-14.5); Segmented Neutrophils % 58.9 %
[2017-05-12 06:12] LABS: Calcium 7.8 mg/dL (8.6-10.3); Potassium 4.1 mEq/L (3.5-5.1)
--- NOTE | 2017-05-12 07:35 | Urology - Consult Note ---
Date of Encounter: 05/12/17 Time of Encounter: 07:33 - Assessment and Plan (1) Abdominal pain Current Visit: Yes Status: Acute Assessment and plan: pt may have become dehydrated and has demonstrated increasing debilitation. no signs of sepsis or severe infection. I recommend keeping pt in the hospital , continuing hydration, ABX and proceed with planned stone extraction tomorrow ( she was already on outpatient schedule). Qualifiers: Abdominal location: lower abdomen, unspecified Qualified Code(s): R10.30 - Lower abdominal pain, unspecified Urology CN:HPI Consult date: 05/12/17 History of present illness: pt known to the service. Recent CT scan which showed a 5.9 mm stone in the left mid ureter causes left obstructive uropathy. stent placed by [facility]. Has had increasing fatigue and dark urine. no fever. Past Med Surg Social Fam HX - Past Medical History Medical history: atrial fibrillation, coronary artery disease, hypertension, kidney stones, other Psychiatric history: no psych history - Past Surgical History Surgical History: herniorrhaphy, hysterectomy, other - Social History Smoking Status: Never smoker Smokeless Tobacco Status: No Alcohol use: none Drug use: none - Family History Mother History Unknown: Yes Living Status: Age at : 96 Father History Unknown: Yes Family Member Ethnicity: Non- Living Status: Son Hx Family Genitourinary Disorders: Yes Medications and Allergies Metoprolol XL (24 HR) Succ [Toprol XL] 25 mg PO HS 11/18/14 [History] Nitroglycerin [Nitrostat] 0.4 mg SL Q5M PRN 11/18/14 [History] Calcitriol [Rocaltrol] 0.25 mcg PO HS 11/21/15 [History] Losartan/HCTZ [Hyzaar 50-12.5 Tablet] 1 tab PO DAILY 11/21/15 [History] Arsen's Leg Cramps 1 each PO HS 06/01/16 [History] Apixaban [Eliquis] 5 mg PO BID 04/26/17 [History] Ergocalciferol (VITAMIN D2) [Vitamin D2] 50,000 unit PO FR 04/26/17 [History] Isosorbide MONOnitrate (24 HR) [Imdur] 30 mg PO DAILY 04/26/17 [History] Fluconazole [Diflucan] 100 mg PO DAILY 12 Days #12 tablet 04/27/17 [Rx] Sulfamethoxazole/Trimeth DS [Bactrim Ds] 1 tab PO BID 05/11/17 [History] 3 Allergy/AdvReac Type Severity Reaction Status Date / Time No Known Allergies Allergy Verified 05/11/17 14:29 Review of Systems - Constitutional fatigue, no fever(s) - Gastrointestinal abdominal pain Exam Initial Vital Signs Temp Pulse Resp BP Pulse Ox 97.9 F 80 18 162/73 96 05/11/17 10:59 05/11/17 10:59 05/11/17 10:59 05/11/17 10:59 05/11/17 10:59 - General physical appearance Present: well developed, no distress - Eyes Present: PERRL - ENT Present: normal nares, no hearing loss - Neck Present: no masses, no lymphadenopathy - Respiratory Present: normal respiratory effort - Abdomen Abdomen: Present: soft, suprapubic tenderness. Absent: masses - Integumentary Present: no rash - Neurologic Present: normal coordination. Absent: disoriented, confused Urology Results - Labs 05/12/17 05:20 05/12/17 05:20 Abnormal lab results RBC 3.75 M/mcL (3.82-4.97) L 05/12/17 05:20 Hgb 11.3 g/dL (11.5-15.4) L 05/12/17 05:20 Hct 35.2 % (35.3-44.9) L 05/12/17 05:20 Chloride 113 mEq/L (98-107) H 05/12/17 05:20 Carbon Dioxide 21 mEq/L (23-29) L 05/12/17 05:20 BUN 35 mg/dL (8-23) H 05/12/17 05:20 Creatinine 1.57 mg/dL (0.60-1.20) H 05/12/17 05:20 Est GFR ( Amer) 38 (> 60) L 05/12/17 05:20 Est GFR (Non-Af Amer) 31 (> 60) L 05/12/17 05:20 Calcium 7.8 mg/dL (8.6-10.3) L 05/12/17 05:20 Serum Total Protein 6.0 g/dL (6.4-8.9) L 05/11/17 11:32 Albumin 3.3 g/dL (3.5-5.7) L 05/11/17 11:32 Ur Specimen Adequacy See below A 05/11/17 11:19 Urine Clarity Cloudy (Clear) A 05/11/17 11:19 Urine Protein 100 mg/dL (Neg-Trace) H 05/11/17 11:19 Urine Blood Large (Negative) H 05/11/17 11:19 Ur Leukocyte Esterase Moderate (Negative) H 05/11/17 11:19 Ur Culture Indicated? YES (NO) A 05/11/17 11:19 Diabetes panel 05/12/17 Range/Units 05:20 Sodium 139 (136-145) mEq/L Potassium 4.1 (3.5-5.1) mEq/L Chloride 113 H (98-107) mEq/L Carbon Dioxide 21 L (23-29) mEq/L BUN 35 H (8-23) mg/dL Creatinine 1.57 H (0.60-1.20) mg/dL Glucose 94 (70-105) mg/dL Calcium 7.8 L (8.6-10.3) mg/dL Calcium panel 05/12/17 Range/Units 05:20 Calcium 7.8 L (8.6-10.3) mg/dL Pituitary panel 05/12/17 Range/Units 05:20 Sodium 139 (136-145) mEq/L Potassium 4.1 (3.5-5.1) mEq/L Chloride 113 H (98-107) mEq/L Carbon Dioxide 21 L (23-29) mEq/L BUN 35 H (8-23) mg/dL Creatinine 1.57 H (0.60-1.20) mg/dL Glucose 94 (70-105) mg/dL Calcium 7.8 L (8.6-10.3) mg/dL Adrenal panel 05/12/17 Range/Units 05:20 Sodium 139 (136-145) mEq/L Potassium 4.1 (3.5-5.1) mEq/L Chloride 113 H (98-107) mEq/L Carbon Dioxide 21 L (23-29) mEq/L BUN 35 H (8-23) mg/dL Creatinine 1.57 H (0.60-1.20) mg/dL Glucose 94 (70-105) mg/dL Calcium 7.8 L (8.6-10.3) mg/dL All other labs normal. Consult Discharge Plan - Plan Referrals: Chloé Lazaro MD [Primary Care Provider] -
[2017-05-12] MEDS ORDERED: cefTRIAXone 1,000 MG in Water for inj. (sterile) 20 ML 10 ML IVP SCH (09:00)
[2017-05-12] MEDS: Isosorbide MONOnitrate (24 HR) 30 MG TAB.ER.24H PO SCH (09:10)
[2017-05-12] MEDS: Losartan/HCTZ 50-12.5 TABLET PO SCH (09:10)
[2017-05-12] MEDS: Ondansetron 4 MG/2 ML VIAL IVP SCH ×3 (13:38→23:39)
--- NOTE | 2017-05-12 18:19 | Internal Med Progress Note ---
Date of Encounter: 05/12/17 Time of Encounter: 10:05 - Assessment and plan (1) UTI (urinary tract infection) Current Visit: Yes Status: Acute Assessment and plan: Final urine culture negative for UTI. Will stop Rocephin IV. Qualifiers: Urinary tract infection type: acute cystitis Hematuria presence: with hematuria Qualified Code(s): N30.01 - Acute cystitis with hematuria (2) Abdominal pain Current Visit: Yes Status: Resolved Assessment and plan: Resolved. Pt states that she is feeling better and has no abd pain. Nausea this a.m that was resolved by antiemetic, no diarrhea or vomiting. Abd soft and non-tender. Bowel sound pleasant. Qualifiers: Abdominal location: lower abdomen, unspecified Qualified Code(s): R10.30 - Lower abdominal pain, unspecified (3) Afib Current Visit: Yes Status: Acute Assessment and plan: Rate controlled. Continue BB and Eliquis. Continue telemetry. Qualifiers: Atrial fibrillation type: chronic Qualified Code(s): I48.2 - Chronic atrial fibrillation (4) Hyperparathyroidism Current Visit: Yes Status: Acute Assessment and plan: Pt reports hypercalcemia is the cause of her recurrent renal calculi. Pt does not see endocrinology Continue Calcitriol. (5) Generalized weakness Current Visit: Yes Status: Acute Assessment and plan: Secondary to dehydration and UTI. Continue IVF hydration PT/OT consultations in and pending. (6) CKD (chronic kidney disease) stage 3, GFR 30-59 ml/min Current Visit: Yes Status: Acute Assessment and plan: Stable, improving mild JEANETTE on CKD. . Continue IVF hydration and avoid nephrotoxins. Continue to monitor labs. (7) Dehydration Current Visit: Yes Status: Acute Assessment and plan: Family reports chronically poor po intake. Pt denies recent vomiting or diarrhea to contribute to fluid losses. Continue IVF hydration, 0.9NS at 75mlhour Monitor labs. (8) Coronary artery disease Current Visit: Yes Status: Chronic Assessment and plan: Chronic. Continue BB, Imdur, Eliquis Pt denies chest pain. Telemetry Qualifiers: Coronary Disease-Associated Artery/Lesion type: [place] artery [place] vs. transplanted heart: [place] heart Associated angina: without angina Qualified Code(s): I25.10 - Atherosclerotic heart disease of [place] coronary artery without angina pectoris (9) DVT prophylaxis Current Visit: Yes Status: Acute Assessment and plan: Pt on Eliquis. - Time Spent With Patient less than 15 minutes - Subjective Interval history: Pt was seen and assessed at 10:05 AM. Patient is alert, awake, pleasant, oriented. States her pain is well controlled. She did have some nausea this morning, resolved with antiemetics. She states this is normal for her when she has kidney stones. She is aware that she will be staying again overnight for stone extraction by urology tomorrow morning. She denies headache, blurred vision, nausea, vomiting, diarrhea, abdominal pain, chest pain or shortness of breath. - Constitutional Vitals: Temp Pulse Resp BP Pulse Ox 98.0 F 55 16 94/60 94 05/12/17 14:29 05/12/17 14:29 05/12/17 14:29 05/12/17 14:29 05/12/17 14:29 General appearance: Present: cooperative, A&O X 3, pleasant, no acute distress, answers questions appropriately - Head Head exam: Present: atraumatic, normal inspection, normocephalic - Eye Eye exam: Present: normal appearance, conjuntiva pink, sclera anicteric - Neck Neck exam general surgery: Present: supple, trachea midline. Absent: lymphadenopathy, tenderness - Respiratory Respiratory exam: Present: CTAB. Absent: accessory muscle use, chest wall tenderness, rales, respiratory distress, rhonchi, wheezes - Cardiovascular Cardiovascular exam: Present: RRR, +S1, +S2. Absent: diastolic murmur, gallop, rubs, systolic murmur - GI/Abdominal GI/Abdominal exam: Present: normal bowel sounds, soft, no peritoneal signs. Absent: distended, hepatomegaly, splenomegaly, tenderness - Extremities Exam Extremities exam: Present: normal capillary refill, normal inspection, warm, radial pulses palpable and symmetrical. Absent: calf tenderness, cyanotic, pedal edema, tenderness - Neurological Exam Neurological exam: Present: alert, oriented X3, no focal deficits. Absent: facial droop, speech deficit - Skin Skin exam: Present: dry, intact, normal color, warm. Absent: rash Internal Medicine: Result - Labs CBC & Chem 7: 05/12/17 05:20 05/12/17 05:20 Labs: Short CBC 05/12/17 Range/Units 05:20 WBC 4.3 (4.3-11.1) K/mcL Hgb 11.3 L (11.5-15.4) g/dL Hct 35.2 L (35.3-44.9) % Plt Count 166 (140-400) K/mcL Neutrophils # 2.5 (1.6-8.9) K/mcL BMP 05/12/17 05:20 Sodium 139 Potassium 4.1 Chloride 113 H Carbon Dioxide 21 L BUN 35 H Creatinine 1.57 H Glucose 94 Calcium 7.8 L Consult Discharge Plan - Plan Referrals: Chloé Lazaro MD [Primary Care Provider] -
[2017-05-12] MEDS: traMADol 50 MG TABLET PO PRN (18:49)
--- NOTE | 2017-05-12 19:17 | Anesthesia Evaluation PreOp ---
Date of Encounter: 05/12/17 Time of Encounter: 21:10 - Past History Planned Operation: LEFT URETEROSCOPIC STONE EXTRACTION Cardiac History: HTN, Arrhythmia (Paroxysmal AFib 06/2016 with syncopy), Other ( 06/2016: Normal LVEF, Negative stress test) Pulmonary History: Denies Any Significant HX [employer] History: Denies Any Significant HX Other Medical History: Renal (STAGE 3 CKD, LEFT OBSTRUCTIVE UROPATHY,), GERD ( Occasional heartburn, s/p Chilo for hiatal hernia), Other (HYPERPARATHYROIDISM , ANEMIA) Anesthesia History: No Prior Anesthetic Complications, Past Anesthesia (JENA, kidney stones, Chilo,) Alcohol Use: none Drug use: none Medications and Allergies Metoprolol XL (24 HR) Succ [Toprol XL] 25 mg PO HS 11/18/14 [History] Nitroglycerin [Nitrostat] 0.4 mg SL Q5M PRN 11/18/14 [History] Calcitriol [Rocaltrol] 0.25 mcg PO HS 11/21/15 [History] Losartan/HCTZ [Hyzaar 50-12.5 Tablet] 1 tab PO DAILY 11/21/15 [History] Arsen's Leg Cramps 1 each PO HS 06/01/16 [History] Apixaban [Eliquis] 5 mg PO BID 04/26/17 [History] Ergocalciferol (VITAMIN D2) [Vitamin D2] 50,000 unit PO FR 04/26/17 [History] Isosorbide MONOnitrate (24 HR) [Imdur] 30 mg PO DAILY 04/26/17 [History] Fluconazole [Diflucan] 100 mg PO DAILY 12 Days #12 tablet 04/27/17 [Rx] Sulfamethoxazole/Trimeth DS [Bactrim Ds] 1 tab PO BID 05/11/17 [History] 3 Allergy/AdvReac Type Severity Reaction Status Date / Time No Known Allergies Allergy Verified 05/11/17 14:29 - Meds/Allergy Pre-op Review Medications Reviewed: Yes Allergies Reviewed: Yes Beta Blockers on Current Med List: Yes Anesthesia Results - Labs 05/12/17 05:20 05/12/17 05:20 Laboratory Tests 05/12/17 05:20 Calcium 7.8 L - Imaging EKG: report reviewed (SR, 1st degree AVB) Anesthesia Exam Vital Signs/O2 Sat/Glucose, Most Recent Temp Pulse Resp BP Pulse Ox 97.5 F L 59 18 104/55 97 05/12/17 18:59 05/12/17 18:59 05/12/17 18:59 05/12/17 18:59 05/12/17 18:59 Blood Glucose* 87 HEIGHT 1.55 m WEIGHT 91 kg BMI 38 Weight: 91 Kg BMI 38 NPO (# of Hours): Instructed NPO after MN - HEENT Mallampati: II Denture Type: Upper: Complete Oral Opening: Greater than 3 - Cardiac Rhythm: Regular - Pulmonary Breath Sounds: bilateral Clear Anesthesia Assess/Plan ASA Score: 3 Anesthetic Plan: General Monitoring Plan: Standard Monitors Recovery Plan: PACU Anes Supervising Prov Stmt: I have participated in the evaluation of this patient. Patient informed and consented. Risks, benefits, and alternatives discussed. Patient wishes to proceed.
[2017-05-12] MEDS: Metoprolol XL (24 HR) Succ 25 MG TAB.ER.24H PO SCH (20:21)
[2017-05-12] MEDS: [UNRECOGNIZED DRUG - OTHER] PO SCH (20:21)
[2017-05-12] MEDS ORDERED: traMADol 50 MG TABLET PO PRN (20:26)
[2017-05-12] MEDS ORDERED: *HR* OxyCODONE Immed Rel 5 MG TABLET PO PRN (20:50)
[2017-05-13 06:05] LABS: Basophils % 0.5 %; Eosinophils # 0.3 K/mcL (0.0-0.6); Eosinophils % 6.6 %; Hematocrit 32.5 % (35.3-44.9); Hemoglobin 10.6 g/dL (11.5-15.4); Lymphocytes # 1.3 K/mcL (0.6-4.6); Mean Corpuscular HGB Conc 32.6 g/dL (31.6-35.5); Mean Corpuscular Hemoglobin 30.3 pg (28.0-33.3); Mean Corpuscular Volume 92.9 fL (83.0-100.0); Mean Platelet Volume 11.5 fL (9.4-12.4); Monocytes # 0.5 K/mcL (0.0-1.3); Monocytes % 12.3 %; Platelet Count 155 K/mcL (140-400); Red Cell Distribution Width 13.2 % (11.5-14.5); Segmented Neutrophils % 49.6 %
[2017-05-13] MEDS: Ondansetron 4 MG/2 ML VIAL IVP SCH ×3 (06:17→18:22)
[2017-05-13] MEDS: 0.9 % Sodium Chloride 1,000 ML IVC SCH ×3 (06:20→21:50)
[2017-05-13 06:22] LABS: Calcium 8.1 mg/dL (8.6-10.3); Potassium 4.1 mEq/L (3.5-5.1)
[2017-05-13] MEDS ORDERED: Isovue-300 50 ML VIAL IVP ONE (08:45)
--- NOTE | 2017-05-13 08:48 | Operative Note ---
Date of procedure: 05/13/17 Pre-op diagnosis: left ureteral stone Post-op diagnosis: same Procedure: left ureteroscopic stone extraction left retrograde pyelogram cysto with stent removal Anesthesia: GETA Surgeon: Norberto Richards Was there an assistant controller present: No Estimated blood loss (cc): 0 Specimen: none sent Condition: stable Disposition: PACU Procedure in Detail: PROCEDURE IN DETAIL: Patient was taken back to the operating room, positioned supine on the operating table. Anesthesia was applied without complication. They were moved into dorsal lithotomy. Careful attention was maintained to cushion all pressure points for patient's safety. They were prepped and draped in sterile fashion. Time-out was performed with the proper patient and procedure. A 21-Amharic rigid cystoscope was inserted into the bladder without difficulty. Systematic examination of bladder revealed no abnormalities. the left stent was partially removed and a zip wire was placed. the stent was removed and I placed a flexible ureteroscope. I encountered at least 8 stones in her kidney (none in the ureter). All significant stone was removed. one of the larger stones required laser lithotripsy to safely extract. The fragments were individually basketed out of the ureter with a 1.9 tipless basket. All stone in the ureter and most of the renal stones were removed. A 4.8 x 26 ureteral stent was placed over the zip wire under fluoroscopy without complication. The bladder was drained along with the stone fragments. They were collected and sent for stone analysis. The string was left attached to the stent and secured to the patient for easy removal in approximately 72 hours.
[2017-05-13] MEDS ORDERED: CeFAZolin Syr 2,000MG/20 ML 2,000 MG/20 ML SYRINGE IVPB ONE (09:07)
--- NOTE | 2017-05-13 10:31 | Anesthesia Evaluation Post Op ---
Date of Encounter: 05/13/17 Time of Encounter: 10:30 - Vital Signs Vital Signs: Vital Signs/O2 Sat, Most Current Temp Pulse Resp BP Pulse Ox 97.9 F 66 14 131/71 98 05/13/17 09:57 05/13/17 10:17 05/13/17 10:17 05/13/17 10:17 05/13/17 10:17 - Lungs Lungs: Clear Ascult./Percussion - Airway Airway: Non-obstructed - Cardiovascular Regular Rate - Mental Status Mental Status: Alert & Oriented, Answers Appropriately - Pain Pain Scale: 0 Pain Scale used: Numeric (1 - 10) - Nausea Vomiting Nausea Vomiting: Not Present - Hydration Hydration: NPO, Has not voided Notes: 05/13/17 10:31 pt denies complaints - Discharge PostOp Status: Transfer Patient to floor
[2017-05-13] MEDS ORDERED: *HR* OxyCODONE Immed Rel 5 MG TABLET PO PRN (11:11)
[2017-05-13] MEDS ORDERED: Acetaminophen 325 MG TABLET PO PRN (11:11)
[2017-05-13] MEDS ORDERED: traMADol 50 MG TABLET PO PRN (11:11)
[2017-05-13] MEDS ORDERED: Melatonin 3 MG TABLET PO PRN (11:11)
[2017-05-13] MEDS ORDERED: Naloxone 0.4 MG/ML INJ IVP PRN (11:11)
[2017-05-13] MEDS: Apixaban 5 MG TABLET PO SCH ×2 (14:37→21:47)
--- NOTE | 2017-05-13 15:33 | Internal Med Progress Note ---
Date of Encounter: 05/13/17 Time of Encounter: 15:31 - Assessment and plan (1) Left ureteral calculus Current Visit: No Status: Resolved Assessment and plan: per hx. Follows with Dr. Richards. S/p left ureteroscopic stone extraction with left ureteral stent placement. UA indicative of UTI, received one dose IV ceftriaxone and cefazolin. Urine culture negative. No indication for ATB. Voiding without difficulty, no dysuria, no hematuria. Urology following (2) Generalized weakness Current Visit: Yes Status: Acute Assessment and plan: presented to ER with 2-3 days of generalized weakness (this was actually the main reason for coming to the emergency room not the known ureteral stents). Family reportedly concerned that patient is not safe at home. PT/OT consult (3) CKD (chronic kidney disease) stage 3, GFR 30-59 ml/min Current Visit: Yes Status: Acute Assessment and plan: per hx. Renal function appears baseline. Avoid nephrotoxic agents as possible. Cont home ARB as renal function appears stable. Monitor repeat renal function. (4) Afib Current Visit: Yes Status: Acute Assessment and plan: per hx. Rate controlled. Cont home BB, eliquis Qualifiers: Atrial fibrillation type: chronic Qualified Code(s): I48.2 - Chronic atrial fibrillation (5) Coronary artery disease Current Visit: Yes Status: Chronic Assessment and plan: per hx. Asymptomatic, denies chest pain. Cont home eliquis, BB, long-acting nitrate. Qualifiers: Coronary Disease-Associated Artery/Lesion type: [place] artery [place] vs. transplanted heart: [place] heart Associated angina: without angina Qualified Code(s): I25.10 - Atherosclerotic heart disease of [place] coronary artery without angina pectoris (6) Hyperparathyroidism Current Visit: Yes Status: Acute Assessment and plan: Pt reports hypercalcemia is the cause of her recurrent renal calculi. Continue Calcitriol. (7) DVT prophylaxis Current Visit: Yes Status: Acute Assessment and plan: Eliuis - Subjective Interval history: Seen and examined at bedside. Patient is new to me, information obtained from chart review and patient report. Says she feels well, essentially has no complaints. No abdominal pain, no dysuria, no flank pain. No fevers or chills. Denies hematuria. Tolerating regular diet. - Constitutional Vitals: Temp Pulse Resp BP Pulse Ox 98.2 F 73 20 131/71 93 05/13/17 11:00 05/13/17 12:30 05/13/17 12:30 05/13/17 12:30 05/13/17 12:30 General appearance: Present: cooperative, A&O X 3, pleasant, no acute distress, answers questions appropriately - Head Head exam: Present: atraumatic, normocephalic - Eye Eye exam: Present: PERRL, conjuntiva pink, sclera anicteric Pupils: Present: PERRL - Neck Neck exam general surgery: Present: supple, trachea midline. Absent: lymphadenopathy - Respiratory Respiratory exam: Present: CTAB. Absent: accessory muscle use, rales, rhonchi, wheezes - Cardiovascular Cardiovascular exam: Present: RRR, +S1, +S2. Absent: diastolic murmur, gallop, rubs, systolic murmur - GI/Abdominal GI/Abdominal exam: Present: normal bowel sounds, soft, no peritoneal signs. Absent: distended, tenderness - Extremities Exam Extremities exam: Present: warm, radial pulses palpable and symmetrical. Absent : calf tenderness, cyanotic, pedal edema - Neurological Exam Neurological exam: Present: CN II-XII intact, oriented X3, no focal deficits. Absent: pronater drift, facial droop, speech deficit - Skin Skin exam: Present: dry, intact Internal Medicine: Result - Labs CBC & Chem 7: 05/13/17 04:49 05/13/17 04:49 Labs: Short CBC 05/13/17 Range/Units 04:49 WBC 4.1 L (4.3-11.1) K/mcL Hgb 10.6 L (11.5-15.4) g/dL Hct 32.5 L (35.3-44.9) % Plt Count 155 (140-400) K/mcL Neutrophils # 2.0 (1.6-8.9) K/mcL BMP 05/13/17 04:49 Sodium 139 Potassium 4.1 Chloride 111 H Carbon Dioxide 22 L BUN 27 H Creatinine 1.38 H Glucose 89 Calcium 8.1 L - Impressions Impressions Fluoroscopy 05/13/17 00:00 IMPRESSION: Intraprocedural fluoroscopic spot images as above. See separate procedure report for more information. D/ / Tony Nance MD / Tony Nance MD Interpreting Provider: Tony Nance MD X-Ray 05/13/17 00:00 IMPRESSION: Intraprocedural fluoroscopic spot images as above. See separate procedure report for more information. D/ / Tony Nance MD / Tony Nance MD Interpreting Provider: Tony Nance MD Consult Discharge Plan - Plan Referrals: Chloé Lazaro MD [Primary Care Provider] - 05/16/17 1:30 pm
[2017-05-13] MEDS: Losartan/HCTZ 50-12.5 TABLET PO SCH (18:30)
[2017-05-13] MEDS: Isosorbide MONOnitrate (24 HR) 30 MG TAB.ER.24H PO SCH (18:30)
[2017-05-13] MEDS ORDERED: Metoprolol XL (24 HR) Succ 25 MG TAB.ER.24H PO SCH (21:00)
[2017-05-13] MEDS ORDERED: Patient Taking Own Medication 1 EACH PO SCH (21:00)
--- NOTE | 2017-05-14 00:06 | Electrocardiograph Report ---
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
[2017-05-14] MEDS: Ondansetron 4 MG/2 ML VIAL IVP SCH ×2 (00:09→09:07)
[2017-05-14 04:40] LABS: Hematocrit 32.1 % (35.3-44.9); Hemoglobin 10.8 g/dL (11.5-15.4); Mean Corpuscular HGB Conc 33.6 g/dL (31.6-35.5); Mean Corpuscular Hemoglobin 30.3 pg (28.0-33.3); Mean Corpuscular Volume 89.9 fL (83.0-100.0); Mean Platelet Volume 11.8 fL (9.4-12.4); Platelet Count 164 K/mcL (140-400); Red Blood Count 3.57 M/mcL (3.82-4.97); Red Cell Distribution Width 12.8 % (11.5-14.5)
[2017-05-14 04:54] LABS: Calcium 8.2 mg/dL (8.6-10.3); Potassium 4.2 mEq/L (3.5-5.1)
[2017-05-14 06:54] VITALS: BP 151/75
--- NOTE | 2017-05-14 07:17 | Urology Progress Note ---
Date of Encounter: 05/13/17 Time of Encounter: 17:00 - Assessment and Plan (1) Abdominal pain Current Visit: Yes Status: Resolved Assessment and plan: s/p planned stone extraction. states feels better. will remain in hospital overnight for possible evaluation by OTMari lovett for discharge from standpoint. pt will remove stent at home friday. Qualifiers: Abdominal location: lower abdomen, unspecified Qualified Code(s): R10.30 - Lower abdominal pain, unspecified Progress Note Subjective: feels better Objective Initial Vital Signs Temp Pulse Resp BP Pulse Ox 97.9 F 80 18 162/73 96 05/11/17 10:59 05/11/17 10:59 05/11/17 10:59 05/11/17 10:59 05/11/17 10:59 - General physical appearance Present: well developed, no distress - Labs 05/14/17 03:27 05/14/17 03:27 Diabetes panel 05/14/17 Range/Units 03:27 Sodium 138 (136-145) mEq/L Potassium 4.2 (3.5-5.1) mEq/L Chloride 113 H (98-107) mEq/L Carbon Dioxide 19 L (23-29) mEq/L BUN 24 H (8-23) mg/dL Creatinine 1.14 (0.60-1.20) mg/dL Glucose 151 H (70-105) mg/dL Calcium 8.2 L (8.6-10.3) mg/dL Calcium panel 05/14/17 Range/Units 03:27 Calcium 8.2 L (8.6-10.3) mg/dL Pituitary panel 05/14/17 Range/Units 03:27 Sodium 138 (136-145) mEq/L Potassium 4.2 (3.5-5.1) mEq/L Chloride 113 H (98-107) mEq/L Carbon Dioxide 19 L (23-29) mEq/L BUN 24 H (8-23) mg/dL Creatinine 1.14 (0.60-1.20) mg/dL Glucose 151 H (70-105) mg/dL Calcium 8.2 L (8.6-10.3) mg/dL Adrenal panel 05/14/17 Range/Units 03:27 Sodium 138 (136-145) mEq/L Potassium 4.2 (3.5-5.1) mEq/L Chloride 113 H (98-107) mEq/L Carbon Dioxide 19 L (23-29) mEq/L BUN 24 H (8-23) mg/dL Creatinine 1.14 (0.60-1.20) mg/dL Glucose 151 H (70-105) mg/dL Calcium 8.2 L (8.6-10.3) mg/dL Consult Discharge Plan - Plan Referrals: Chloé Lazaro MD [Primary Care Provider] - 05/16/17 1:30 pm
[2017-05-14] MEDS ORDERED: Isosorbide MONOnitrate (24 HR) 30 MG TAB.ER.24H PO SCH (09:00)
[2017-05-14] MEDS ORDERED: Losartan/HCTZ 50-12.5 TABLET PO SCH (09:00)
[2017-05-14] MEDS: Apixaban 5 MG TABLET PO SCH (09:07)
--- NOTE | 2017-05-14 11:24 | Discharge Summary ---
Date of Encounter: 05/14/17 Time of Encounter: 11:22 - Discharge Diagnosis (1) Left ureteral calculus Priority: Primary Status: Resolved Comments: s/p planned stone extraction, stent placed, and patient will remove it on Friday at home (2) Acute renal insufficiency Priority: Primary Status: Acute Comments: Acute on chronic renal failure, with history of chronic kidney disease stage III Likely related to ureteral obstruction (3) Afib Priority: Secondary Status: Acute Qualifiers: Atrial fibrillation type: chronic Qualified Code(s): I48.2 - Chronic atrial fibrillation (4) CKD (chronic kidney disease) stage 3, GFR 30-59 ml/min Priority: Secondary Status: Acute (5) Hyperparathyroidism Priority: Secondary Status: Acute (6) Coronary artery disease Priority: Secondary Status: Chronic Qualifiers: Coronary Disease-Associated Artery/Lesion type: [place] artery [place] vs. transplanted heart: [place] heart Associated angina: without angina Qualified Code(s): I25.10 - Atherosclerotic heart disease of [place] coronary artery without angina pectoris Hospital course: Ms. Coates is a 82 year old female with past medical history of A. fib on anticoagulation with Eliquis, hypertension, coronary artery disease, renal calculi, hyperparathyroidism, chronic kidney disease stage III. Presented to the emergency department with low abdominal pain that has resolved, generalized weakness for 3 days. Patient had been treated recently with ureteral stents and has been seen by Dr. Richards for recurrent renal calculi. Urine collected in the emergency department was indicative of UTI. She received gentle IV fluid hydration and 1 g of Rocephin IV for 2 doses, which was stopped after the culture came back negative. Patient reported general malaise, weakness. Recent CT scan showed a 5.9 mm stone in the left mid ureter causes left obstructive uropathy. Dr. Richards was consulted, stone was removed and the stent was placed. The patient is asymptomatic at the moment stable to be discharged home. - Time Spent with Patient Total time spent providing and/or coordinating discharge services: Greater than 30 minutes (40 min) - Discharge Medications Prescriptions: OxyCODONE Immed Rel [Roxicodone 5 MG] 5 mg PO Q6HR PRN 5 Days #20 tablet PRN Reason: Severe Pain Home Medications: Metoprolol XL (24 HR) Succ [Toprol XL] 25 mg PO HS 11/18/14 [History] Nitroglycerin [Nitrostat] 0.4 mg SL Q5M PRN 11/18/14 [History] Calcitriol [Rocaltrol] 0.25 mcg PO HS 11/21/15 [History] Losartan/HCTZ [Hyzaar 50-12.5 Tablet] 1 tab PO DAILY 11/21/15 [History] Arsen's Leg Cramps 1 each PO HS 06/01/16 [History] Apixaban [Eliquis] 5 mg PO BID 04/26/17 [History] Ergocalciferol (VITAMIN D2) [Vitamin D2] 50,000 unit PO FR 04/26/17 [History] Isosorbide MONOnitrate (24 HR) [Imdur] 30 mg PO DAILY 04/26/17 [History] Acetaminophen [Tylenol] 650 mg PO Q6HR PRN tablet 05/14/17 [Rx] OxyCODONE Immed Rel [Roxicodone 5 MG] 5 mg PO Q6HR PRN 5 Days #20 tablet [Rx] Allergies/Adverse Reactions: 3 Allergy/AdvReac Type Severity Reaction Status Date / Time No Known Allergies Allergy Verified 05/11/17 14:29 Date of admission: 05/11/17 14:01 Primary care physician: Chloé Campuzano Consults: 05/11/17 15:30 Consult to Occupational Therapy [CONS] Routine Comment: Evaluate, develop and implement POC Reason for Consult: weakness Does patient have active BEDREST order?: No Is patient medically & hemodynamically stable?: Yes Patient assessed for mobility or mobilized this visit?: Yes Consult to Physical Therapy [CONS] Routine Comment: Evaluate, develop and implement POC Reason for Consult: evaluation of weakness Does patient have active BEDREST order?: No Is patient medically & hemodynamically stable?: Yes Patient assessed for mobility or mobilized this visit?: Yes - Constitutional Vitals: Temp Pulse Resp BP Pulse Ox 98.2 F 62 18 151/75 94 05/14/17 06:52 05/14/17 06:52 05/14/17 06:52 05/14/17 06:52 05/14/17 06:52 General appearance: Present: cooperative, A&O X 3, pleasant, no acute distress, answers questions appropriately - Head Head exam: Present: atraumatic, normocephalic - Eye Eye exam: Present: PERRL, conjuntiva pink, sclera anicteric Pupils: Present: PERRL - Neck Neck exam general surgery: Present: supple, trachea midline. Absent: lymphadenopathy - Respiratory Respiratory exam: Present: CTAB. Absent: accessory muscle use, rales, rhonchi, wheezes - Cardiovascular Cardiovascular exam: Present: RRR, +S1, +S2. Absent: diastolic murmur, gallop, rubs, systolic murmur - GI/Abdominal GI/Abdominal exam: Present: normal bowel sounds, soft, no peritoneal signs. Absent: distended, tenderness - Extremities Exam Extremities exam: Present: warm, radial pulses palpable and symmetrical. Absent : calf tenderness, cyanotic, pedal edema - Neurological Exam Neurological exam: Present: CN II-XII intact, oriented X3, no focal deficits. Absent: pronater drift, facial droop, speech deficit - Skin Skin exam: Present: dry, intact - Patient Status Disposition: Home, Self-Care Condition: Good - Discharge Instructions Follow Up With: Chloé Lazaro MD [Primary Care Provider] - 05/16/17 1:30 pm Additional Instructions: Follow-up with urology as needed. Remove stent on Friday. - Diet and Activity Activity: increase activity as tolerated Diet: low fat, low cholesterol
== END 2017-05-14 11:15 | disposition home or self-care (01) ==
LOC: 3BNU 10:56 → EMEROO 10:56 → 3BNU 14:31
PROVIDERS: ADMIT Student in an Organized Health Care Education/Training Program; ATTEND Registered Nurse

== ENCOUNTER 2020-07-19 13:31 | Observation (INO) ==
[2020-07-19] MEDS ORDERED: Naloxone 0.4 MG/ML INJ IVP PRN ×2 (14:50→16:58)
[2020-07-19] MEDS: 0.9 % Sodium Chloride 1,000 ML IVC SCH (15:13)
[2020-07-19 16:13] LABS: Basophils % 0.3 %; Eosinophils # 0.1 K/mcL (0.0-0.6); Eosinophils % 0.6 %; Hematocrit 41.8 % (35.3-44.9); Hemoglobin 13.7 g/dL (11.5-15.4); Immature Granulocytes % 0.3 % (0-4); Lymphocytes # 0.8 K/mcL (0.6-4.6); Lymphocytes % 7.8 %; Mean Corpuscular HGB Conc 32.8 g/dL (31.6-35.5); Mean Corpuscular Hemoglobin 31.1 pg (28.0-33.3); Mean Corpuscular Volume 94.8 fL (83.0-100.0); Mean Platelet Volume 11.8 fL (9.4-12.4); Monocytes # 0.4 K/mcL (0.0-1.3); Neutrophils # 9.1 K/mcL (1.6-8.9); Platelet Count 186 K/mcL (140-400); Red Blood Count 4.41 M/mcL (3.82-4.97); Red Cell Distribution Width 12.8 % (11.5-14.5); White Blood Count 10.5 K/mcL (4.3-11.1)
[2020-07-19 16:34] LABS: Calcium 9.2 mg/dL (8.6-10.3); Potassium 4.3 mEq/L (3.5-5.1)
[2020-07-19] MEDS: Acetaminophen IV 1,000 MG/100 ML BAG IVPB SCH ×2 (16:57→23:55)
[2020-07-19] MEDS ORDERED: Ketorolac 30 MG/ML VIAL IVP PRN (17:20)
[2020-07-19] MEDS: Ondansetron 4 MG/2 ML VIAL IVP PRN (17:47)
[2020-07-19] MEDS: Potassium Citrate 10 MEQ TABLET.ER PO SCH (20:44)
[2020-07-19] MEDS ORDERED: Melatonin 3 MG TABLET PO SCH (21:00)
[2020-07-19 22:17] LABS: Bacteria,Urine Moderate per hpf (None-Few); Bilirubin,Urine Negative (Negative); Blood,Urine Trace (Negative); Clarity,Urine Turbid (Clear); Color,Urine Yellow (Yellow); Glucose,Urine (UA) Normal (Normal); Ketones,Urine Trace mg/dL (Negative); Leukocyte Esterase,Urine Moderate (Negative); Mucus,Urine Few per lpf (None-Few); Nitrite,Urine Positive (Negative); PH,Urine 5.5 pH Units (5.0-8.0); Protein,Urine 30 mg/dL (Neg-Trace); RBC,Urine 0-3 per hpf (0-3); Specific Gravity,Urine > 1.030 (1.010-1.025); Squamous Epithelial Cell,Urine Moderate per hpf (None-Few); Urobilinogen,Urine Normal (Normal); WBC,Urine 30-50 per hpf (0-3)
[2020-07-20] MEDS ORDERED: cefTRIAXone 1,000 MG in Water for inj. (sterile) 10 ML IVP SCH (02:00)
[2020-07-20] MEDS: 0.9 % Sodium Chloride 1,000 ML IVC SCH (03:38)
[2020-07-20 06:59] VITALS: BP 165/88
[2020-07-20] MEDS: Potassium Citrate 10 MEQ TABLET.ER PO SCH (08:18)
[2020-07-20] MEDS: Acetaminophen IV 1,000 MG/100 ML BAG IVPB SCH (08:26)
[2020-07-20] MEDS: Ondansetron 4 MG/2 ML VIAL IVP PRN (08:26)
[2020-07-20] MEDS ORDERED: Isosorbide MONOnitrate (24 HR) 30 MG TAB.ER.24H PO SCH (09:00)
[2020-07-20] MEDS ORDERED: allopurinoL 100 MG TABLET PO SCH (09:00)
[2020-07-20] MEDS ORDERED: Aspirin Enteric Coated 81 MG Tablet PO SCH (09:00)
[2020-07-20] MEDS ORDERED: Metoprolol XL (24 HR) Succ 25 MG TAB.ER.24H PO SCH (09:00)
== END 2020-07-20 10:31 | disposition home or self-care (01) ==
LOC: 3BNU
PROVIDERS: ADMIT Urology; ATTEND Urology

== ENCOUNTER 2021-10-01 11:43 | Observation (INO) ==
[2021-10-01 12:27] LABS: Basophils % 0.4 %; Eosinophils # 0.2 K/mcL (0.0-0.6); Eosinophils % 2.3 %; Hematocrit 40.4 % (35.3-44.9); Hemoglobin 13.5 g/dL (11.5-15.4); Immature Granulocytes % 0.3 % (0-4); Lymphocytes # 1.1 K/mcL (0.6-4.6); Lymphocytes % 14.3 %; Mean Corpuscular HGB Conc 33.4 g/dL (31.6-35.5); Mean Corpuscular Hemoglobin 30.9 pg (28.0-33.3); Mean Corpuscular Volume 92.4 fL (83.0-100.0); Mean Platelet Volume 11.1 fL (9.4-12.4); Monocytes # 0.7 K/mcL (0.0-1.3); Monocytes % 8.5 %; Neutrophils # 5.8 K/mcL (1.6-8.9); Platelet Count 202 K/mcL (140-400); Red Blood Count 4.37 M/mcL (3.82-4.97); Red Cell Distribution Width 13.2 % (11.5-14.5); Segmented Neutrophils % 74.2 %; White Blood Count 7.8 K/mcL (4.3-11.1)
[2021-10-01] MEDS ORDERED: Ondansetron 4 MG/2 ML VIAL IVP ONE (12:40)
[2021-10-01 13:10] LABS: Troponin I < 0.03 ng/mL (< 0.04)
[2021-10-01 13:23] LABS: Alanine Aminotransferase 7 Units/L (7-52); Albumin 3.3 g/dL (3.5-5.7); Albumin/Globulin Ratio 1.1 (1.1-2.2); Alkaline Phosphatase 87 Units/L (34-104); Aspartate Amino Transferase 14 Units/L (13-39); BUN/Creatinine Ratio 17 (6-26); Bilirubin,Total 1.5 mg/dL (0.3-1.0); Blood Urea Nitrogen 17 mg/dL (8-23); Calcium 8.8 mg/dL (8.6-10.3); Carbon Dioxide 24 mEq/L (23-29); Chloride 102 mEq/L (98-107); Globulin 3.1 g/dL (2.4-3.5); Glucose 106 mg/dL (70-105); Lipase 52 Units/L (11-82); Magnesium 1.7 mg/dL (1.6-2.6); Osmolality,Calculated 284 (280-300); Potassium 3.6 mEq/L (3.5-5.1); Sodium 136 mEq/L (136-145); Total Protein 6.4 g/dL (6.4-8.9); eGFR For African Americans > 60 (> 60); eGFR For Non-African Americans 51 (> 60)
[2021-10-01] MEDS ORDERED: Aspirin 81 MG TAB.CHEW PO ONE (14:21)
[2021-10-01 14:43] LABS: Thyroid Stimulating Hormone 3.699 mcIU/mL (0.340-5.600)
[2021-10-01 14:44] LABS: Bacteria,Urine Many per hpf (None-Few); Bilirubin,Urine Small (Negative); Blood,Urine Trace (Negative); Clarity,Urine Turbid (Clear); Color,Urine Yellow (Yellow); Glucose,Urine (UA) Normal (Normal); Ketones,Urine 20 mg/dL (Negative); Leukocyte Esterase,Urine Large (Negative); Mucus,Urine Few per lpf (None-Few); Nitrite,Urine Negative (Negative); Protein,Urine 30 mg/dL (Neg-Trace); RBC,Urine 0-3 per hpf (0-3); Specific Gravity,Urine 1.025 (1.010-1.025); Squamous Epithelial Cell,Urine Few per hpf (None-Few); Urobilinogen,Urine >=8.0 mg/dL (Normal); WBC,Urine 15-30 per hpf (0-3)
[2021-10-01] MEDS ORDERED: cefTRIAXone 1,000 MG in 0.9 % Sodium Chloride 10 ML IVP ONE (14:51)
[2021-10-01] MEDS ORDERED: Naloxone 0.4 MG/ML INJ IVP PRN (15:27)
[2021-10-01] MEDS ORDERED: Ondansetron 4 MG/2 ML VIAL IVP PRN (15:33)
[2021-10-01] MEDS ORDERED: Acetaminophen 325 MG TABLET PO PRN (15:33)
[2021-10-01] MEDS ORDERED: Furosemide 20 MG/2 ML VIAL IVP ONE (15:38)
[2021-10-01] MEDS: *HR* Heparin 5,000 UNIT/ML VIAL SQ SCH (18:31)
[2021-10-01] MEDS ORDERED: Melatonin 3 MG TABLET PO PRN (22:37)
[2021-10-02 01:39] LABS: Basophils % 0.5 %; Eosinophils # 0.2 K/mcL (0.0-0.6); Eosinophils % 2.9 %; Hematocrit 37.4 % (35.3-44.9); Hemoglobin 12.2 g/dL (11.5-15.4); Immature Granulocytes % 0.4 % (0-4); Lymphocytes # 1.2 K/mcL (0.6-4.6); Lymphocytes % 14.4 %; Mean Corpuscular HGB Conc 32.6 g/dL (31.6-35.5); Mean Corpuscular Hemoglobin 30.2 pg (28.0-33.3); Mean Corpuscular Volume 92.6 fL (83.0-100.0); Mean Platelet Volume 11.3 fL (9.4-12.4); Monocytes # 0.7 K/mcL (0.0-1.3); Neutrophils # 5.8 K/mcL (1.6-8.9); Platelet Count 207 K/mcL (140-400); Red Blood Count 4.04 M/mcL (3.82-4.97); Red Cell Distribution Width 13.2 % (11.5-14.5); Segmented Neutrophils % 72.8 %
[2021-10-02 02:05] LABS: BUN/Creatinine Ratio 15 (6-26); Blood Urea Nitrogen 17 mg/dL (8-23); Calcium 8.2 mg/dL (8.6-10.3); Carbon Dioxide 27 mEq/L (23-29); Chloride 101 mEq/L (98-107); Glucose 94 mg/dL (70-105); Magnesium 1.6 mg/dL (1.6-2.6); Osmolality,Calculated 287 (280-300); Potassium 3.7 mEq/L (3.5-5.1); Sodium 138 mEq/L (136-145); Troponin I < 0.03 ng/mL (< 0.04); eGFR For African Americans 55 (> 60); eGFR For Non-African Americans 46 (> 60)
[2021-10-02] MEDS: *HR* Heparin 5,000 UNIT/ML VIAL SQ SCH (05:48)
[2021-10-02] MEDS ORDERED: cefTRIAXone 1,000 MG in Water for inj. (sterile) 10 ML IVP SCH (09:00)
[2021-10-02 11:12] VITALS: TEMP 98.3
[2021-10-02 14:38] VITALS: BP 137/82; PULSE 83; O2SAT 93
== END 2021-10-02 15:25 | disposition home or self-care (01) ==
LOC: 3BNU 11:43 → EMEROOARM 11:43 → SUATTDRO 15:48 → 3BNU 18:30
PROVIDERS: ADMIT Internal Medicine; ATTEND Registered Nurse

== ENCOUNTER 2021-10-25 13:28 | Observation (INO) ==
[2021-10-25 14:34] LABS: Basophils % 0.5 %; Eosinophils % 0.5 %; Hematocrit 44.2 % (35.3-44.9); Hemoglobin 13.9 g/dL (11.5-15.4); Immature Granulocytes % 0.2 % (0-4); Lymphocytes # 0.4 K/mcL (0.6-4.6); Lymphocytes % 6.8 %; Mean Corpuscular HGB Conc 31.4 g/dL (31.6-35.5); Mean Corpuscular Hemoglobin 29.4 pg (28.0-33.3); Mean Corpuscular Volume 93.6 fL (83.0-100.0); Mean Platelet Volume 11.6 fL (9.4-12.4); Monocytes # 0.4 K/mcL (0.0-1.3); Monocytes % 6.3 %; Neutrophils # 5.2 K/mcL (1.6-8.9); Platelet Count 159 K/mcL (140-400); Red Blood Count 4.72 M/mcL (3.82-4.97); Red Cell Distribution Width 13.2 % (11.5-14.5); Segmented Neutrophils % 85.7 %
[2021-10-25 14:50] LABS: BUN/Creatinine Ratio 11 (6-26); Blood Urea Nitrogen 14 mg/dL (8-23); Calcium 8.9 mg/dL (8.6-10.3); Carbon Dioxide 23 mEq/L (23-29); Chloride 102 mEq/L (98-107); Glucose 100 mg/dL (70-105); Osmolality,Calculated 283 (280-300); Sodium 136 mEq/L (136-145)
[2021-10-25 14:53] LABS: Influenza A PCR Negative (Negative); Influenza B PCR Negative (Negative); Resp. Syncytial Virus PCR Negative (Negative)
[2021-10-25 14:55] LABS: SARS-CoV-2 by PCR (In House) Positive (Negative)
[2021-10-25 14:58] LABS: Troponin I < 0.03 ng/mL (< 0.04)
[2021-10-25 16:45] LABS: Bacteria,Urine Few per hpf (None-Few); Bilirubin,Urine Negative (Negative); Blood,Urine Trace (Negative); Clarity,Urine Turbid (Clear); Color,Urine Yellow (Yellow); Glucose,Urine (UA) Normal (Normal); Ketones,Urine 10 mg/dL (Negative); Leukocyte Esterase,Urine Trace (Negative); Mucus,Urine Few per lpf (None-Few); Nitrite,Urine Negative (Negative); Protein,Urine 100 mg/dL (Neg-Trace); RBC,Urine 0-3 per hpf (0-3); Specific Gravity,Urine 1.016 (1.010-1.025); Squamous Epithelial Cell,Urine Few per hpf (None-Few); Urobilinogen,Urine Normal (Normal)
[2021-10-25] MEDS ORDERED: Ondansetron ODT 4 MG TAB.RAPDIS SL PRN (18:08)
[2021-10-25] MEDS ORDERED: Mag Hydrox/Al Hydrox/Simeth 30 ML UDC PO PRN (18:08)
[2021-10-25] MEDS ORDERED: MOM Conc 10 ML UD.LIQ PO PRN (18:08)
[2021-10-25] MEDS ORDERED: Naloxone 0.4 MG/ML INJ IVP PRN (18:08)
[2021-10-25] MEDS ORDERED: Melatonin 3 MG TABLET PO PRN (18:08)
[2021-10-25] MEDS ORDERED: cefTRIAXone 1,000 MG in 0.9 % Sodium Chloride 10 ML IVP SCH (19:00)
[2021-10-26 01:52] LABS: Eosinophils % 1.6 %
[2021-10-26 01:53] LABS: Basophils % 0.8 %; Eosinophils # 0.1 K/mcL (0.0-0.6); Hematocrit 42.2 % (35.3-44.9); Hemoglobin 13.4 g/dL (11.5-15.4); Immature Platelets 7.1 % (1.1-6.1); Lymphocytes # 0.7 K/mcL (0.6-4.6); Lymphocytes % 19.3 %; Mean Corpuscular HGB Conc 31.8 g/dL (31.6-35.5); Mean Corpuscular Hemoglobin 29.6 pg (28.0-33.3); Mean Corpuscular Volume 93.4 fL (83.0-100.0); Mean Platelet Volume 11.6 fL (9.4-12.4); Monocytes # 0.6 K/mcL (0.0-1.3); Monocytes % 15.3 %; Neutrophils # 2.4 K/mcL (1.6-8.9); Platelet Count 133 K/mcL (140-400); Red Blood Count 4.52 M/mcL (3.82-4.97); Red Cell Distribution Width 13.4 % (11.5-14.5); White Blood Count 3.8 K/mcL (4.3-11.1)
[2021-10-26 02:09] LABS: Albumin 3.4 g/dL (3.5-5.7); Albumin/Globulin Ratio 1.1 (1.1-2.2); Bilirubin,Total 0.5 mg/dL (0.3-1.0); Calcium 8.8 mg/dL (8.6-10.3); Globulin 3.2 g/dL (2.4-3.5); Potassium 3.4 mEq/L (3.5-5.1); Total Protein 6.6 g/dL (6.4-8.9)
[2021-10-26] MEDS ORDERED: *HR* Enoxaparin 40 MG/0.4 ML SYRINGE SQ SCH (06:00)
[2021-10-26 07:49] VITALS: BP 167/91; PULSE 93; TEMP 98.6; O2SAT 95
[2021-10-26] MEDS ORDERED: Metoprolol XL (24 HR) Succ 25 MG TAB.ER.24H PO SCH (09:00)
[2021-10-26] MEDS ORDERED: Aspirin Enteric Coated 81 MG Tablet PO SCH (09:00)
== END 2021-10-26 11:50 | disposition home or self-care (01) ==
LOC: EMEROOARM 13:28 → 3NENU 13:28 → SUATTDRO 17:55 → 3NENU 18:39
PROVIDERS: ADMIT Internal Medicine; ATTEND Registered Nurse